=== PATIENT | male | born 1930 | race Caucasian/White ===

== ENCOUNTER 2018-07-22 04:56 | Inpatient (IN) ==
[2018-07-15 12:48] LABS: Appearance,Urine CLEAR; Bilirubin,Urine NEG (NEG); Color,Urine YELLOW; Glucose,Urine (UA) NEGATIVE (NEG); Leukocyte Esterase,Urine NEG /uL (NEG); Protein,Urine NEG (NEG); Specific Gravity,Urine 1.015 (1.000-1.035); Urine Blood NEG mg/dL (<0.03); Urobilinogen,Urine NEG (NEG)
[2018-07-15 13:07] LABS: Basophils # (Auto) 0 K/mcL (0.0-0.3); Basophils % (Auto) 0.3 % (0.0-2.0); Eosinophils # (Auto) 0.1 K/mcL (0.0-0.7); Granulocytes % (Auto) 73.8 % (38.0-78.0); Lymphocytes # (Auto) 0.9 K/mcL (1.5-4.8); Lymphocytes % (Auto) 14.5 % (15.5-49.0); Mean Cell Volume 91.6 fL (80.0-100.0); Mean Corpuscular HGB Conc 32.6 g/dL (31.0-36.0); Monocytes # (Auto) 0.6 K/mcL (0.1-0.9); Monocytes % (Auto) 9.4 % (1.0-12.0); Platelet Count 327 K/mcL (140-440); RBC 3.56 M/mcL (4.50-5.90); Red Cell Distribution Width 16.9 % (11.5-14.5)
[2018-07-15 13:36] LABS: Blood Urea Nitrogen 35 mg/dl (8-23)
[2018-07-15 15:03] LABS: Estimated Average Glucose(eAG) 140 mg/dL; Hemoglobin A1C 6.5 % HGB (4.0-6.0)
[2018-07-22] MEDS ORDERED: PREGABALIN 75 MG CAPSULE PO SCH (07:00)
[2018-07-22] MEDS ORDERED: CELECOXIB 200 MG CAPSULE PO SCH (07:00)
[2018-07-22] MEDS ORDERED: oxyCODONE 10 MG TAB.ER.12H PO SCH (07:00)
[2018-07-22] MEDS ORDERED: IPRATROPIUM/ALBUTEROL 3 ML AMPUL.NEB NEB ONE (07:09)
[2018-07-22] MEDS: ceFAZolin 1 GM VIAL IV SCH ×4 (07:22→22:32)
[2018-07-22] MEDS ORDERED: SUCCINYLCHOLINE 20 MG/ML ML IV ONE (08:00)
[2018-07-22] MEDS ORDERED: MIDAZOLAM 5 MG/5 ML VIAL IV ONE (08:00)
[2018-07-22] MEDS ORDERED: PHENYLEPHRINE 10 MG/ML VIAL IV ONE (08:00)
[2018-07-22] MEDS ORDERED: DEXAMETHASONE 10 MG/ML VIAL IV ONE (08:00)
[2018-07-22] MEDS ORDERED: LIDOCAINE HCL/PF 100 MG/5 ML SYRINGE IV ONE (08:00)
[2018-07-22] MEDS ORDERED: fentaNYL 100 MCG/2 ML VIAL IV ONE (08:00)
[2018-07-22] MEDS ORDERED: PROPOFOL 200 MG/20 ML VIAL IV ONE (08:00)
[2018-07-22] MEDS ORDERED: ONDANSETRON 4 MG/2 ML VIAL IV ONE (08:00)
[2018-07-22] MEDS ORDERED: HEPARIN 20,000 UNIT/ML VIAL IR ONE (08:30)
[2018-07-22] MEDS ORDERED: fentaNYL 100 MCG/2 ML VIAL IV PRN (08:41)
[2018-07-22] MEDS ORDERED: FLUMAZENIL 0.1 MG/ML ML IV PRN (08:41)
[2018-07-22] MEDS ORDERED: IPRATROPIUM/ALBUTEROL 3 ML AMPUL.NEB NEB PRN (08:41)
[2018-07-22] MEDS ORDERED: NALOXONE HCL 0.4 MG/ML VIAL IV PRN (08:41)
[2018-07-22] MEDS ORDERED: HYDROmorphone 2 MG/ML VIAL IV PRN (08:41)
[2018-07-22] MEDS ORDERED: METHOCARBAMOL 1,000 MG/10 ML VIAL IV PRN (08:41)
[2018-07-22] MEDS ORDERED: MEPERIDINE 25 MG/ML SYRINGE IV PRN (08:41)
[2018-07-22] MEDS ORDERED: ACETAMINOPHEN 1,000 MG/100 ML BOTTLE IV ONE (08:41)
[2018-07-22] MEDS ORDERED: ATROPINE SULFATE 0.4 MG/ML VIAL IV PRN (08:41)
[2018-07-22] MEDS ORDERED: ONDANSETRON 4 MG/2 ML VIAL IV PRN ×2 (08:41→09:34)
[2018-07-22] MEDS ORDERED: ePHEDrine 50 MG/ML AMPUL IV PRN (08:41)
[2018-07-22] MEDS ORDERED: diphenhydrAMINE 50 MG/ML VIAL IV PRN (08:41)
[2018-07-22] MEDS ORDERED: LACTATED RINGERS 1,000 ML IV SCH (08:45)
--- NOTE | 2018-07-22 09:33 | Brief Operative Note ---
Date of procedure: 07/22/18 Pre-op diagnosis: R hip severe OA Post-op diagnosis: same Procedure: Right anterior total hip arthroplasty Grafts/Implants: Yes (Depuy Actis 9 std stem, +5 36 delta head, 56 cup, neutral altrx liner) Anesthesia: spinal, GLMA Findings: severe arthritis Complications: none Surgeon: Humberto Patel Hoisting Laborer: Elfego Herrera Estimated blood loss (cc): 150 Specimens Removed/Pathology: none sent Condition: stable Disposition: PACU
[2018-07-22] MEDS ORDERED: KETOROLAC 15 MG/ML VIAL IV PRN (09:34)
[2018-07-22] MEDS ORDERED: POLYETHYLENE GLYCOL 3350 17 GM PACKET PO PRN (09:34)
[2018-07-22] MEDS ORDERED: TRANEXAMIC ACID 1,000 MG/10 ML VIAL IV SCH (09:34)
[2018-07-22] MEDS ORDERED: BENZOCAINE/MENTHOL 1 LOZENGE PO PRN (09:34)
[2018-07-22] MEDS ORDERED: FLEETS ADULT ENEMA PR PRN (09:34)
[2018-07-22] MEDS ORDERED: BISACODYL 10 MG SUPP.RECT PR PRN (09:34)
[2018-07-22] MEDS ORDERED: MAGNESIUM HYDROXIDE 30 ML ORAL.SUSP PO PRN (09:34)
[2018-07-22] MEDS ORDERED: valACYclovir 1,000 MG TABLET PO PRN (09:37)
[2018-07-22] MEDS ORDERED: METOLAZONE 2.5 MG TABLET PO PRN (09:37)
[2018-07-22] MEDS ORDERED: ALBUTEROL SULFATE 1 PUFF INHALER INH PRN (09:37)
--- NOTE | 2018-07-22 10:32 | XRay Report ---
CLINICAL INFORMATION: Right hip replacement TECHNIQUE: 0.6 minutes fluoroscopy utilized by Dr. Patel. Multiple spot films obtained. Right total hip arthroplasty performed IMPRESSION: Fluoroscopy and intraoperative spot films. Right total hip arthroplasty Interpreted and Authenticated by: Josiah Celestin 07/22/18
--- NOTE | 2018-07-22 10:33 | XRay Report ---
CLINICAL INFORMATION: Right total hip arthroplasty TECHNIQUE: AP pelvis, AP and lateral right hip COMPARISON: None. FINDINGS: Status post right total hip arthroplasty. Femoral head and acetabular complements. Anatomic. Pelvis is negative. No fracture. No lytic lesion. Left hip is negative. IMPRESSION: Right total hip arthroplasty Interpreted and Authenticated by: Josiah Celestin 07/22/18
--- NOTE | 2018-07-22 11:19 | Operative Note ---
DATE OF OPERATION: 07/22/2018 PREOPERATIVE DIAGNOSIS: Right hip severe osteoarthritis. POSTOPERATIVE DIAGNOSIS: Right hip severe osteoarthritis. PROCEDURE PERFORMED: Right anterior total hip arthroplasty using a DePuy Actis size 9 standard offset femoral stem; a +5, 36 mm delta ceramic head ball; a 56 [place] cup with a neutral AltrX liner. SURGEON: Humberto Patel M.D. FURRIER DESIGNER: Serafin Herrera PA-C. ANESTHESIA: Spinal plus general. DRAINS: None. SPECIMENS: Femoral head which was discarded. BLOOD LOSS: 150 mL. COMPLICATIONS: None. POSTOPERATIVE CONDITION: Stable. INDICATIONS FOR SURGERY: This is an 88-year-old male who has had longstanding severe right hip pain. Radiographs showed complete obliteration of the joint space with severe arthritis. FINDINGS AT SURGERY: As above. Post implantation showed components in good position with satisfactory leg length and offset episcopalian. PROCEDURE IN DETAIL: The patient had been seen preoperatively and informed consent had been obtained after discussion of risks and benefits of surgery. Risks including, but not limited to, bleeding, possibly requiring transfusion; infection, possibly requiring implant removal and prolonged IV antibiotics; injury to nerves, blood vessels, other surrounding structures; anesthetic risks; incomplete or no resolution of symptoms; leg length discrepancy; dislocation; fracture; DVT and pulmonary embolus risks; and the possibility of needing further revision surgery. He understood and wished to proceed. Correct operative site was marked and then patient was taken to the operating room. General anesthesia induced after spinal anesthesia was given in preop holding. He was carefully positioned on the fracture table, and the right hip and groin were then carefully prepped and draped in normal sterile fashion, and a time-out was performed verifying patient name, operative site, and plan. Standard anterior approach incision was made, starting at the groin crease and extending distally with a scalpel through skin and subcutaneous tissue. Hemostasis obtained with Bovie cautery. Blunt dissection was taken down onto tensor fascia and this was undermined circumferentially. Irrisept was irrigated and then a ring retractor was placed. Tensor fascia was incised in line with the muscle fibers. Careful blunt dissection was taken medial to the muscle belly and blunt cobra retractors placed on the superior and inferior neck. Circumflex vessels were coagulated and cut and vastus fascia was split distally. Anterior capsulectomy was performed and capsule releases taken down to the lesser and out towards the greater trochanter. We then placed a corkscrew in the femoral head. Osteotome was used under fluoro to identify our approximate neck cut and then we used the oscillating tip saw to make our neck cut. Femoral head was removed and the acetabulum was exposed. Labrum was excised circumferentially as well as soft tissue removed from the floor. We reamed down to the tear drop and then increased reamer size and angle until we got rim ream with a 55 reamer. We opened a 56 three-hole cup. Acetabulum was irrigated with Irrisept, after a minute pulse lavaged with saline. An [id number] was used to impact the cup. We were having difficulty getting press fit. We removed the cup and removed some more soft tissue. We then re-impacted and did get some press fit, but felt he would benefit from extra fixation with a screw. We drilled in the posterior superior quadrant and placed a 35 mm screw. We then placed a center hole cover, and a neutral Altrx liner was carefully aligned and impacted. Tabs were verified to be fully flush. We removed some anterior osteophyte with a curved osteotome. Traction was removed from the leg. It was externally rotated. Capsule was released around the medial neck and posteriorly and then the leg was extended and adducted. Capsule was released out to the greater trochanter, and then after we had adequate exposure of the proximal femur a box osteotome was used to gain canal entry. An awl was used to identify trajectory. A rongeur and rasp were used to lateralize. We broached up manually using offset broach handles up initially to a size 6. We calcar planed down some and then trialed a standard offset neck with a +1.5 head ball. Hip was reduced very easily. We brought in fluoroscopy. We x-rayed the nonoperative and operative hip, and we were clearly undersized on our stem and short, so we went ahead and re-dislocated. I increased broaches, broaching up to a 9 which sat us above our neck cut to try and get our leg lengths equal. We went ahead and opened a 9 Actis stem. The femoral trial was removed and Irrisept was irrigated down the femoral canal. After a minute we pulse lavaged copiously with saline and then the femoral stem was impacted. It did seat up about 4 to 5 mm off the neck cut. We went ahead and trialed the 1.5 head ball. The hip was reduced. It appeared we were going to be slightly undersized, so we went ahead and opened a +5 head ball. We re-exposed the proximal femur. The stem was cleaned and dried carefully and then a +5 head ball was briskly impacted. The hip was reduced without excessive tension. Final fluoro images were taken and printed. Overlay revealed nearly identical leg lengths. We went ahead and irrigated with Irrisept, after a minute pulse lavaged with saline, and then tensor fascia was closed with #1 Vicryl running stitch, one going proximal and one running distal. Ring retractor was removed. Irrisept was irrigated again and after a minute pulse lavaged with saline. Fat was tacked to fascia with Vicryl and then 2-0 Monocryl for subcutaneous and gabe for skin. Xeroform and sterile dressing were applied. The patient was then awakened, extubated, and transferred to recovery in stable condition. BJB:sue Job ID: [id number] Doc ID: [id number] Humberto Patel MD
[2018-07-22] MEDS ORDERED: valACYclovir 500 MG TABLET PO PRN (12:30)
[2018-07-22] MEDS: IPRATROPIUM/ALBUTEROL 3 ML AMPUL.NEB NEB SCH ×3 (12:50→19:47)
[2018-07-22] MEDS: 0.9 % SODIUM CHLORIDE 10 ML SYRINGE IV SCH ×2 (15:14→21:04)
[2018-07-22] MEDS: FUROSEMIDE 20 MG TABLET PO SCH (15:14)
[2018-07-22] MEDS: 0.9 % SODIUM CHLORIDE 1,000 ML IV SCH ×2 (15:14→20:54)
[2018-07-22] MEDS: oxyCODONE/APAP 5/325MG TABLET PO PRN (19:38)
[2018-07-22] MEDS: BUDESONIDE 0.5 MG/2 ML AMPUL.NEB NEB SCH (19:46)
[2018-07-22] MEDS: WARFARIN 2.5 MG TABLET PO SCH (20:50)
[2018-07-22] MEDS: DOCUSATE SODIUM 100 MG CAPSULE PO SCH (20:51)
[2018-07-22] MEDS: PSEUDOEPHEDRINE 30 MG TABLET PO SCH (20:51)
[2018-07-22] MEDS: SENNOSIDES 1 TABLET PO SCH (20:51)
[2018-07-22] MEDS: BISOPROLOL 5 MG TABLET PO SCH (20:52)
[2018-07-22] MEDS: ALLOPURINOL 100 MG TABLET PO SCH (20:52)
[2018-07-22] MEDS: ATORVASTATIN 20 MG TABLET PO SCH (20:52)
[2018-07-22] MEDS ORDERED: ASPIRIN 325 MG ENTERIC COATED TABLET PO SCH (21:00)
[2018-07-23] MEDS: 0.9 % SODIUM CHLORIDE 1,000 ML IV SCH ×3 (00:22→16:25)
[2018-07-23] MEDS: IPRATROPIUM/ALBUTEROL 3 ML AMPUL.NEB NEB SCH ×4 (04:19→19:50)
[2018-07-23] MEDS: oxyCODONE/APAP 5/325MG TABLET PO PRN ×2 (05:49→21:25)
[2018-07-23] MEDS: 0.9 % SODIUM CHLORIDE 10 ML SYRINGE IV SCH ×3 (05:49→21:34)
[2018-07-23] MEDS: BUDESONIDE 0.5 MG/2 ML AMPUL.NEB NEB SCH (07:22)
--- NOTE | 2018-07-23 08:05 | Orthopedic Progress Note ---
Orthopedics - Auxillary Note - Subjective Patient Information: Note initiated : 07/23/18 at 8:04 am Service Date, if different from initiated Date: [] Patient: Yoav Álvarez 88 y/o M admitted on 07/22/18 for Right Total Hip Arthroplasty Anterior. Chief Complaint: mild to moderate pain. bandages c/d/i nvi-distal Vital Signs Temp Pulse Pulse Resp BP BP Pulse Ox 07/23/18 07:36 80 18 98 07/23/18 07:35 80 18 07/23/18 04:10 81 15 07/23/18 04:06 97.1 F 85 18 139/66 93 07/22/18 23:30 97.1 F 83 18 113/60 93 07/22/18 20:19 98.5 F 85 18 106/69 93 07/22/18 19:43 81 18 07/22/18 17:00 78 07/22/18 13:34 81 07/22/18 12:36 81 127/68 94 07/22/18 12:11 78 142/95 91 07/22/18 11:40 73 123/51 98 07/22/18 11:25 83 144/49 98 07/22/18 11:09 85 159/81 92 07/22/18 11:00 79 90 07/22/18 10:54 75 135/70 98 07/22/18 10:39 84 135/72 88 L 07/22/18 10:31 97.3 F 86 26 H 147/87 94 07/22/18 10:20 97.0 F 92 H 16 148/70 100 07/22/18 10:05 98.5 F 88 20 159/135 100 07/22/18 10:00 86 23 H 151/102 100 07/22/18 09:55 85 19 208/152 100 07/22/18 09:54 98.9 F 74 20 168/90 100 Intake and Output 07/22/18 07/23/18 07/23/18 21:59 05:59 13:59 Intake Total 1960 Output Total 101 451 Balance -101 1509 Intake: IV 1460 Sodium Chloride 0.9% 1,000 ml @ 1460 100 mls/hr IV .Q10H KAREEM Rx#: [id number] Oral 500 Output: Void Amount 100 450 # of times incontinent of urine 1 1 Other: Urine Appearance Clear Urine Color Straw Bright Yellow Urine Odor Normal Normal # Voids 1 Weight 224 lb 8 oz Laboratory Results - last 24 hr 07/23/18 07/23/18 04:05 04:05 Hgb 9.2 L Hct 28.4 L PT 14.2 INR 1.1 s/p R EMELY-stable mobilize with PT. Possible SNF placement versus home depending on how pt is doing.
[2018-07-23] MEDS: DOCUSATE SODIUM 100 MG CAPSULE PO SCH ×2 (08:59→21:24)
[2018-07-23] MEDS: POTASSIUM CHLORIDE 10 MEQ TABLET PO SCH (08:59)
[2018-07-23] MEDS: FUROSEMIDE 20 MG TABLET PO SCH ×2 (08:59→16:20)
[2018-07-23] MEDS: PSEUDOEPHEDRINE 30 MG TABLET PO SCH ×2 (08:59→21:29)
[2018-07-23] MEDS: CETIRIZINE 10 MG TABLET PO SCH (08:59)
[2018-07-23] MEDS: FLUTICASONE PROPIONATE SPRAY.NAS NS SCH (09:00)
[2018-07-23] MEDS: ALLOPURINOL 100 MG TABLET PO SCH (21:19)
[2018-07-23] MEDS: ATORVASTATIN 20 MG TABLET PO SCH (21:22)
[2018-07-23] MEDS: SENNOSIDES 1 TABLET PO SCH (21:23)
[2018-07-23] MEDS: BISOPROLOL 5 MG TABLET PO SCH (21:25)
[2018-07-23] MEDS: WARFARIN 2.5 MG TABLET PO SCH (21:28)
[2018-07-24] MEDS: BUDESONIDE 0.5 MG/2 ML AMPUL.NEB NEB SCH ×2 (00:20→07:40)
[2018-07-24] MEDS: IPRATROPIUM/ALBUTEROL 3 ML AMPUL.NEB NEB SCH ×2 (01:45→07:39)
[2018-07-24] MEDS: 0.9 % SODIUM CHLORIDE 1,000 ML IV SCH (02:05)
[2018-07-24] MEDS: 0.9 % SODIUM CHLORIDE 10 ML SYRINGE IV SCH ×2 (05:51→14:00)
--- NOTE | 2018-07-24 07:56 | Discharge Summary ---
Providers - Providers Patient information: Note initiated : 07/24/18 at 7:54 am Service Date, if different from initiated Date: [] Patient: Yoav Álvarez 88 y/o M admitted on 07/22/18 for Right Total Hip Arthroplasty Anterior. Chief Complaint: [] Discharge date: 07/24/18 Hospitalization Hospital course: Pt was admitted for a R EMELY. Pt underwent the procedure on the day of admission. Pt spent 2 nights on the floor for IV pain meds, IV abx and PT. Pt was discharged to home with home health for PT. Pt will f/u in 2 weeks at [facility]. Pt will cont Coumadin for DVT prophylaxis. Discharge diagnosis: R hip OA Exam - Exam Clean and dry: Yes Weight bearing status: as tolerated Ortho Discharge - EMELY - Patient Instructions Diet: Regular Diet Activity: activity as tolerated Total Hip Protocol: Follow activity instructions as provided by Physical Therapy. Dressing Care: May shower in 2 days - Follow Up Plan Disposition: Home, Self-Care Prognosis: Good Rehab Potential: Good Overall status at discharge: patient is back to baseline - Orders For Discharge Prescriptions: HYDROcodone/APAP 10/325MG [[place] 10-325Mg] 1 - 2 tab PO Q6H PRN #75 tab PRN Reason: Pain Pending Studies Resuscitation Status Do Not Resuscitate Diet Consistent Carbohydrate Diet Start FriJul 22 0936 Albuterol/Ipratropium (Duoneb) 3 ml NEB Q6H [facility] Last Admin: 07/24/18 07:39 Dose: 3 ml Documented by: Admin: 07/24/18 01:45 Dose: 3 ml Documented by: Admin: 07/23/18 19:50 Dose: 3 ml Documented by: Admin: 07/23/18 13:45 Dose: 3 ml Documented by: [email or web address] Admin: 07/23/18 07:20 Dose: 3 ml Documented by: [email or web address] Allopurinol (Zyloprim) 150 mg PO [facility] Last Admin: 07/23/18 21:19 Dose: 150 mg Documented by: JOSE D Cosigned by: MARY Admin: 07/22/18 20:52 Dose: 150 mg Documented by: ODELL Atorvastatin Calcium (Lipitor) 40 mg PO [facility] Last Admin: 07/23/18 21:22 Dose: 40 mg Documented by: JOSE D Cosigned by: MARY Admin: 07/22/18 20:52 Dose: 40 mg Documented by: ODELL Bisoprolol Fumarate (Zebeta) 5 mg PO HS [facility] Last Admin: 07/23/18 21:25 Dose: 5 mg Documented by: JOSE D Cosigned by: MARY Admin: 07/22/18 20:52 Dose: 5 mg Documented by: ODELL Budesonide (Pulmicort) 0.5 mg NEB BID [facility] Last Admin: 07/24/18 07:40 Dose: 0.5 mg Documented by: Admin: 07/24/18 00:20 Dose: Not Given Documented by: Admin: 07/23/18 07:22 Dose: 0.5 mg Documented by: [email or web address] Admin: 07/22/18 19:46 Dose: 0.5 mg Documented by: ASHISH Cetirizine HCl (Zyrtec) 10 mg PO DAILY [facility] Last Admin: 07/23/18 08:59 Dose: 10 mg Documented by: KEVIN Docusate Sodium (Colace) 100 mg PO BID [facility] Last Admin: 07/23/18 21:24 Dose: 100 mg Documented by: JOSE D Cosigned by: MARY Admin: 07/23/18 08:59 Dose: 100 mg Documented by: Admin: 07/22/18 20:51 Dose: 100 mg Documented by: ODELL Fluticasone Propionate (Flonase) 1 spray NS DAILY [facility] Last Admin: 07/23/18 09:00 Dose: 1 spray Documented by: KEVIN Furosemide (Lasix) 20 mg PO BIDD [facility] Last Admin: 07/23/18 16:20 Dose: 20 mg Documented by: Admin: 07/23/18 08:59 Dose: 20 mg Documented by: Admin: 07/22/18 15:14 Dose: 20 mg Documented by: KEVIN Oxycodone/Acetaminophen (Percocet 5-325 Mg) 0 tab PO Q4HP PRN PRN Reason: PAIN LEVEL 3-6 Last Admin: 07/23/18 21:25 Dose: 1 tab Documented by: JOSE D Cosigned by: MARY Admin: 07/23/18 05:49 Dose: 1 tab Documented by: Admin: 07/22/18 19:38 Dose: 1 tab Documented by: ODELL Potassium Chloride (Kdur) 10 meq PO QAMCC [facility] Last Admin: 07/23/18 08:59 Dose: 10 meq Documented by: KEVIN Pseudoephedrine HCl (Sudafed) 15 mg PO BID [facility] Last Admin: 07/23/18 21:29 Dose: 15 mg Documented by: JOSE D Cosigned by: MARY Admin: 07/23/18 08:59 Dose: 15 mg Documented by: Admin: 07/22/18 20:51 Dose: 15 mg Documented by: ODELL Senna (Senokot) 2 tab PO HS [facility] Last Admin: 07/23/18 21:23 Dose: 2 tab Documented by: JOSE D Cosigned by: MARY Admin: 07/22/18 20:51 Dose: 2 tab Documented by: ODELL Sodium Chloride (Saline Flush) 10 ml IV Q8 [facility] Admin: 07/24/18 05:51 Dose: Not Given Documented by: Admin: 07/23/18 21:34 Dose: Not Given Documented by: JOSE D Admin: 07/23/18 16:21 Dose: 10 ml Documented by: Admin: 07/23/18 05:49 Dose: 10 ml Documented by: Admin: 07/22/18 21:04 Dose: Not Given Documented by: Admin: 07/22/18 15:14 Dose: Not Given Documented by: KEVIN Warfarin Sodium (Coumadin) 2.5 mg PO SUTUWETHFRSA@2100 [facility] Last Admin: 07/23/18 21:28 Dose: 2.5 mg Documented by: JOSE D Cosigned by: MARY Admin: 07/22/18 20:50 Dose: 2.5 mg Documented by: ODELL Shift Summary 07/24/18 04:39 Shift Summary by Nikky Linton Patient slept well this shift. Alert and oriented x4. Uses CPAP at night. Up with FWW and SBA. Voids using the urinal, dribbles which is normal for patient. Has wallace-pad. Medicated with Percocet 1 tab x1 with good effect. Right hip dressing CDI. No IV access at this time. No IV medications. For discharge on Friday to SNF. VSS. Initialized on 07/24/18 04:39 - END OF NOTE
[2018-07-24] MEDS: FLUTICASONE PROPIONATE SPRAY.NAS NS SCH (08:12)
[2018-07-24] MEDS: POTASSIUM CHLORIDE 10 MEQ TABLET PO SCH (08:13)
[2018-07-24] MEDS: oxyCODONE/APAP 5/325MG TABLET PO PRN ×2 (08:13→09:50)
[2018-07-24] MEDS: CETIRIZINE 10 MG TABLET PO SCH (08:13)
[2018-07-24] MEDS: PSEUDOEPHEDRINE 30 MG TABLET PO SCH (08:13)
[2018-07-24] MEDS: DOCUSATE SODIUM 100 MG CAPSULE PO SCH (08:13)
[2018-07-24] MEDS: FUROSEMIDE 20 MG TABLET PO SCH (08:13)
[2018-07-27] MEDS ORDERED: WARFARIN 5 MG TABLET PO SCH (21:00)
== END 2018-07-24 14:15 | disposition home or self-care (01) | DRG 470 ==
LOC: MEDSUR 04:56
PROVIDERS: ADMIT Orthopaedic Surgery; ATTEND Orthopaedic Surgery

== ENCOUNTER 2021-05-15 03:46 | Inpatient (IN) ==
[2021-05-15] MEDS ORDERED: IPRATROPIUM/ALBUTEROL 3 ML AMPUL.NEB NEB ONE ×2 (03:59→04:02)
--- NOTE | 2021-05-15 04:20 | XRay Report ---
CLINICAL INFORMATION: Hypoxia COMPARISON: 10/03/2016 TECHNIQUE: Portable FINDINGS: The heart is mildly enlarged increased from prior x-ray. Mediastinum is unremarkable. The pulmonary vessels are equivocally distended. A moderate patchy infiltrate has developed in the right mid and lower lung. There is minimal interstitial edema in both lungs. No effusions. IMPRESSION: Moderate patchy right basilar infiltrate. Probable superimposed mild CHF. Please correlate with supportive history and physical exam findings and possibly BNP Interpreted and Authenticated by: Josiah Wright 05/15/21
[2021-05-15] MEDS ORDERED: FUROSEMIDE 40 MG/4 ML VIAL IV ONE (04:25)
[2021-05-15] MEDS ORDERED: AZITHROMYCIN 500 MG in DEXTROSE 5% IN WATER 250 ML IV ONE (04:27)
[2021-05-15] MEDS ORDERED: cefTRIAXone 1 GM VIAL IV ONE (04:27)
[2021-05-15 04:33] LABS: POC INR 4.1 (0.8-1.2); POC Pro Time 45.5 sec (11.9-14.5)
[2021-05-15 05:10] LABS: Basophils # (Auto) 0.04 K/mcL (0.00-0.30); Basophils % (Auto) 0.3 % (0.0-2.0); Eosinophils # (Auto) 0.12 K/mcL (0.00-0.70); Eosinophils % (Auto) 0.9 % (0.0-7.0); Hematocrit 30.5 % (40.1-51.0); Lymphocytes # (Auto) 1.08 K/mcL (1.50-4.80); Lymphocytes % (Auto) 8.2 % (15.5-49.0); Mean Cell Volume 94.7 fL (80.0-100.0); Mean Corpuscular HGB Conc 32.8 g/dL (31.0-36.0); Mean Platelet Volume 9.9 fL (7.4-10.4); Monocytes # (Auto) 1.19 K/mcL (0.10-0.90); Neutrophils % (Auto) 81.6 % (38.0-78.0); Platelet Count 444 K/mcL (140-440); RBC 3.22 M/mcL (4.63-6.08); Red Cell Distribution Width 15.9 % (11.5-14.5); WBC 13.2 K/mcL (4.5-11.0)
[2021-05-15 05:32] LABS: Blood Urea Nitrogen 31 mg/dL (8-23); Calcium 9.5 mg/dL (8.6-10.4); Carbon Dioxide 28 mmol/L (22-30); Chloride 93 mmol/L (96-108); Glomerular Filtration Rate 29; Glucose 140 mg/dL (70-105)
--- NOTE | 2021-05-15 06:22 | Emergency Department Note ---
SOB HPI General Chief Complaint: Shortness of Breath/Dyspnea Stated Complaint: SHORTNESS OF BREATH Time Seen by Provider: 05/15/21 03:58 Source: patient Mode of arrival: ambulatory Limitations: no limitations History of Present Illness HPI Narrative: This is a very pleasant 89-year-old male with a history of CKD, CHF, COPD, hypertension presented to the ED with acutely worsening dyspnea. Has been going on for 2 to 3 days also has a slight runny nose nasal congestion and acute on chronic cough. No chest pain no abdominal pain or GI symptoms. Does have chronic lower extremity edema unsure if it is worse than normal. Family member reports it seems more edematous. Has been taking his medications. Patient otherwise lives at home, family members help care for him. No other acute complaints. Patient is DNR comfort care Related Data Home Medications Medication Instructions Recorded Confirmed valacyclovir 500 mg tablet 500 mg PO BIDP PRN 09/20/16 04/19/21 potassium chloride 10 mEq 10 meq PO QDAY tab 10/17/16 05/15/21 tablet,extended release warfarin 5 mg tablet See Rx Instructions .ROUTE .COMPLEX 10/17/16 05/15/21 budesonide 0.5 mg/2 mL suspension 0.5 mg INHALATION BID ml 11/20/16 04/19/21 for nebulization fluticasone propionate 50 50 mcg INTRANASAL DAILY 12/17/16 04/19/21 mcg/actuation nasal spray,suspension atorvastatin 40 mg tablet 40 mg PO HS 06/13/17 05/15/21 cetirizine 10 mg capsule 10 mg PO DAILY cap 03/04/18 05/15/21 ipratropium 0.5 mg-albuterol 3 mg 3 ml INHALATION Q6H ml 03/04/18 04/19/21 (2.5 mg base)/3 mL nebulization soln warfarin 2.5 mg tablet 2.5 mg PO WILTONUWETHFRSA@2100 07/15/18 04/19/21 CPAP #1 ea 10/12/19 04/19/21 hydrocortisone 1 % topical cream 1 applic TOPICAL BID PRN 12/21/19 04/19/21 (Anti-Itch (hydrocortisone)) metolazone 2.5 mg tablet 2.5 mg PO PRN PRN 12/21/19 04/19/21 diltiazem HCl 180 mg 180 mg PO QDAY #30 cap 12/19/20 05/15/21 capsule,extended release 24 hr furosemide 20 mg tablet 40 mg PO BID tab 12/19/20 05/15/21 omeprazole 20 mg capsule,delayed 20 mg PO QDAY 05/15/21 05/15/21 release Previous Rx's Medication Instructions Recorded albuterol sulfate 90 mcg/actuation 2 puff INHALATION QIDP PRN #18 g 10/12/19 aerosol inhaler (ProAir HFA) allopurinol 300 mg tablet 150 mg PO HS #45 tab 08/28/20 Allergies Allergy/AdvReac Type Severity Reaction Status Date / Time Imipramine AdvReac Mild Other Verified 04/19/21 14:41 Review of Systems ROS ROS Narrative: Narrative: At least 10 systems reviewed and otherwise acutely negative except as in the HPI PFSH Narrative Patient History Narrative: Narrative: Medical/Surgical/Family History All Active Problems Acute exacerbation of CHF (congestive heart failure) (Acute) Acute pneumonia (Acute) 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) Chronic kidney disease (CKD) stage G3b/A1, moderately decreased glomerular filtration rate (GFR) between 30-44 mL/min/1.73 square meter and albuminuria creatinine ratio less than 30 mg/g (Chronic) BEATA treated with BiPAP (Acute) 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 CKD (chronic kidney disease) stage III (Chronic) Localized edema due to fluid overload (Chronic) Stress incontinence, male (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) Spasm of muscle of lower back (Chronic) Chronic obstructive pulmonary disease without exacerbation (Chronic) Atrial fibrillation (Chronic) Sleep apnea (Chronic) Right hip pain (Chronic) History of lumbar laminectomy (Chronic ~2006) Other intervertebral disc degeneration, thoracolumbar region (Chronic) Normocytic normochromic anemia (Chronic) Prostate cancer (Chronic) Pure hypercholesterolemia, unspecified (Chronic) 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) Renal hypertension (Chronic) GERD (gastroesophageal reflux disease) (Chronic) Left-sided thoracic back pain (Chronic) Spinal stenosis of lumbar region (Chronic) Wheezing (Chronic) Acute diastolic (congestive) heart failure (Chronic) History of Coumadin therapy (Chronic) Acute exacerbation of chronic obstructive airways disease (Acute) Atrial fibrillation with rapid ventricular response (Acute) Acute respiratory failure with hypoxia (Acute) Congestive heart failure (Chronic) Asthma with COPD (Chronic) Medical History Acute diastolic (congestive) heart failure Acute exacerbation of chronic obstructive airways disease Acute respiratory failure with hypoxia Anemia Asthma with COPD Atrial fibrillation Atrial fibrillation with rapid ventricular response Balanoposthitis Benign hypertension with CKD (chronic kidney disease) stage III Bladder neck obstruction Chronic obstructive pulmonary disease without exacerbation Congestive heart failure Coronary artery disease GERD (gastroesophageal reflux disease) History of blood transfusion History of Coumadin therapy IgA monoclonal gammopathy of uncertain significance Left-sided thoracic back pain Localized edema due to fluid overload Normocytic normochromic anemia BEATA treated with BiPAP Other intervertebral disc degeneration, thoracolumbar region Prostate cancer Pure hypercholesterolemia, unspecified Renal hypertension Right hip pain Sleep apnea Sleep apnea with use of continuous positive airway pressure (CPAP) Spasm of muscle of lower back Spinal stenosis of lumbar region Stress incontinence, male Wheezing Surgical History History of cataract surgery (~2006) History of left knee surgery (~1988) History of lumbar laminectomy (~2006) History of prostate surgery (~2008) scar tissue removal from prostate History of prostatectomy (09/05/08) History of tonsillectomy Family History Father , strokes No problems noted. Other No pertinent family history Social History Smoking Status: Former smoker Alcohol Intake Frequency: does not drink Substance Use: does not use Exam Narrative Narrative: Narrative: Constitutional: normally developed, is mildly dyspneic and hypoxic speaking in 2-3 word sentences Head: Normocephalic, atraumatic, Eyes: No Icterus, ENT: Moist mucus membranes, Neck: Supple, Cardiac: Tachycardic heart sounds, palpable radial pulses, 2+ lower extremity edema Pulmonary: Tachypneic hypoxic on room air in the 80s, improved on nasal cannula, dyspneic with 2-3 word sentences, mostly diminished at the bases with sporadic crackle, no wheeze Gastrointestinal: Abdomen soft, non-distended, non-tender, grossly normal a ppearing urine in Sr bag Musculoskeletal: No gross deformities, well perfused Skin: warm, dry Neuro: Alert and orientedx2. General Limitations: no limitations Course Vital Signs Vital signs: Vital Signs Temperature 36.6 C 05/15/21 03:48 Pulse Rate 122 H 05/15/21 03:48 Respiratory Rate 24 H 05/15/21 03:48 Blood Pressure 131/98 05/15/21 03:48 Pulse Oximetry (%) 79 L 05/15/21 03:48 Temperature 36.6 C 05/15/21 03:48 Pulse Rate 79 05/15/21 05:39 Respiratory Rate 93 H 05/15/21 05:06 Blood Pressure 124/107 05/15/21 05:31 Pulse Oximetry (%) 94 05/15/21 05:39 MDM MDM Narrative Medical decision making narrative: Differential COPD, viral infection, pneumonia, ACS, CHF Was still a bit dyspneic on nasal cannula was given a DuoNeb which did help, did place him on BiPAP for work of breathing and comfort given his DNR comfort care status Diagnostics pending Twelve-lead EKG shows atrial fibrillation heart rate 96 some nonspecific and generalized T wave flattening, possible slight J-point depression V2 V3 no ST segment elevations or STEMI criteria. QTc within normal Covid flu negative CBC does show leukocytosis of 13, INR is elevated 4.1, is on Coumadin at baseline Electrolytes show his CKD creatinine 2.0 which is approximately his baseline BNP is elevated higher than previous studies, 3100 Troponin slightly elevated 0.06, given lack of chest pain and presentation I suspect this is more likely due to CKD, volume overload from CHF and hypoxia prior to arrival, we will simply trend and treat underlying causes Chest x-ray shows possible right-sided pneumonia and CHF, which both fit clinically. Is given a dose of IV Lasix and started on Rocephin azithromycin Plan discussed with family members and patient given his comfort care status the would really like to keep him admitted here locally, we do not have beds available in the hospital at this time. Patient is very comfortable and currently hemodynamically stable and improved simply on some low setting BiPAP. I have spoken with sugar house supervisor we will keep the patient in the ER until later in the day when we have anticipated bed open/availability for admission. Patient and family very agreeable to this plan will be signed out to next physician at shift change. Lab Data Result diagrams: 05/15/21 03:59 05/15/21 03:59 Labs: Lab Results 05/15/21 05/15/21 05/15/21 Range/Units 03:59 03:59 03:59 WBC 13.2 H (4.5-11.0) K/mcL RBC 3.22 L (4.63-6.08) M/mcL Hgb 10.0 L (13.7-17.5) g/dL Hct 30.5 L (40.1-51.0) % MCV 94.7 (80.0-100.0) fL MCH 31.1 (26.0-34.0) pg MCHC 32.8 (31.0-36.0) g/dL RDW 15.9 H (11.5-14.5) % Plt Count 444 H (140-440) K/mcL MPV 9.9 (7.4-10.4) fL Neut % (Auto) 81.6 H (38.0-78.0) % Lymph % (Auto) 8.2 L (15.5-49.0) % [place] % (Auto) 9.0 (1.0-12.0) % Eos % (Auto) 0.9 (0.0-7.0) % Baso % (Auto) 0.3 (0.0-2.0) % Lymph # (Auto) 1.08 L (1.50-4.80) K/mcL [place] # (Auto) 1.19 H (0.10-0.90) K/mcL Eos # (Auto) 0.12 (0.00-0.70) K/mcL Baso # (Auto) 0.04 (0.00-0.30) K/mcL Absolute Neutrophils 10.73 H (1.80-8.00) K/mcL POC PT (11.9-14.5) sec POC INR (0.8-1.2) Sodium 136 (133-145) mmol/L Potassium 3.6 (3.3-5.1) mmol/L Chloride 93 L (96-108) mmol/L Carbon Dioxide 28 (22-30) mmol/L Anion Gap 15.0 (8.0-16.0) BUN 31 H (8-23) mg/dL Creatinine 2.0 H (0.7-1.2) mg/dL POC Creatinine (0.6-1.2) mg/dL GFR Calculation 29 Glucose 140 H (70-105) mg/dL Calcium 9.5 (8.6-10.4) mg/dL Troponin T 0.06 H* (<0.03) ng/mL NT-Pro-B Natriuret Pep 3176.0 H (<450.0) pg/mL 05/15/21 05/15/21 Range/Units 03:59 04:09 WBC (4.5-11.0) K/mcL RBC (4.63-6.08) M/mcL Hgb (13.7-17.5) g/dL Hct (40.1-51.0) % MCV (80.0-100.0) fL MCH (26.0-34.0) pg MCHC (31.0-36.0) g/dL RDW (11.5-14.5) % Plt Count (140-440) K/mcL MPV (7.4-10.4) fL Neut % (Auto) (38.0-78.0) % Lymph % (Auto) (15.5-49.0) % [place] % (Auto) (1.0-12.0) % Eos % (Auto) (0.0-7.0) % Baso % (Auto) (0.0-2.0) % Lymph # (Auto) (1.50-4.80) K/mcL [place] # (Auto) (0.10-0.90) K/mcL Eos # (Auto) (0.00-0.70) K/mcL Baso # (Auto) (0.00-0.30) K/mcL Absolute Neutrophils (1.80-8.00) K/mcL POC PT 45.5 H (11.9-14.5) sec POC INR 4.1 H (0.8-1.2) Sodium (133-145) mmol/L Potassium (3.3-5.1) mmol/L Chloride (96-108) mmol/L Carbon Dioxide (22-30) mmol/L Anion Gap (8.0-16.0) BUN (8-23) mg/dL Creatinine (0.7-1.2) mg/dL POC Creatinine 2.1 H (0.6-1.2) mg/dL GFR Calculation Glucose (70-105) mg/dL Calcium (8.6-10.4) mg/dL Troponin T (<0.03) ng/mL NT-Pro-B Natriuret Pep (<450.0) pg/mL ED POC Tests ED POC Tests: ROSITA - Influenza A Negative ROSITA - Influenza B Negative ROSITA - SARS Antigen Negative Discharge Plan Patient/Caregiver Discharge Instructions Pt seen by TRACTOR TRAILER TRUCK DRIVER/PA only: No Clinical Impression: Acute exacerbation of CHF (congestive heart failure), Acute pneumonia Patient Disposition: Still a Patient Condition: Serious Follow up with: Carine Washington MD [Primary Care Provider] - Prescriptions: No Action allopurinol 300 mg tablet 150 mg PO HS Qty: 45 1RF budesonide 0.5 mg/2 mL suspension for nebulization 0.5 mg INHALATION BID 0RF ipratropium-albuterol 0.5 mg-3 mg(2.5 mg base)/3 mL solution for nebulization 3 ml INHALATION Q6H 0RF potassium chloride 10 mEq tablet extended release 10 meq PO QDAY 0RF furosemide 20 mg tablet 40 mg PO BID 0RF diltiazem HCl 180 mg capsule,extended release 24hr 180 mg PO QDAY Qty: 30 0RF hydrocortisone [Anti-Itch (HC)] 1 % cream 1 applic TOPICAL BID PRN0RF fluticasone propionate 50 mcg/actuation spray,suspension 50 mcg INTRANASAL DAILY 0RF cetirizine 10 mg capsule 10 mg PO DAILY 0RF (DME) CPAP Qty: 1 0RF Rx Instructions: As directed albuterol sulfate [ProAir HFA] 90 mcg/actuation HFA aerosol inhaler 2 puff INHALATION QIDP PRN (Reason: Shortness Of Breath) Qty: 18 3RF valacyclovir 500 MG tablet 500 mg PO BIDP PRN (Reason: SHINGLES) 0RF warfarin 5 MG tablet See Rx Instructions .ROUTE .COMPLEX 0RF Label Comments: LAST DOSE PRIOR TO SURGERY: 07/17. WILL HOLD UNTIL AFTER SURGERY BEGINNING ON 07/18. Rx Instructions: 5 mg orally one time daily except on friday take 1/2 tab. warfarin 2.5 MG tablet 2.5 mg PO SUTUWETHFRSA@2100 0RF metolazone 2.5 mg tablet 2.5 mg PO PRN PRN (Reason: lung congestion, fluid retenti) 0RF Label Comments: PT HAS NEVER TAKEN. omeprazole 20 mg Capsule,Delayed Release(Dr/Ec) 20 mg PO QDAY 0RF atorvastatin 40 mg tablet 40 mg PO HS 0RF
--- NOTE | 2021-05-15 08:35 | Emergency Department Note ---
HPI General Chief complaint: Shortness of Breath/Dyspnea Stated complaint: SHORTNESS OF BREATH Time Seen by Provider: 05/15/21 03:58 Source: patient Mode of arrival: ambulatory Limitations: no limitations History of Present Illness HPI Narrative: Narrative: Related Data Home Medications Medication Instructions Recorded Confirmed valacyclovir 500 mg tablet 500 mg PO BIDP PRN 09/20/16 05/15/21 potassium chloride 10 mEq 10 meq PO QDAY tab 10/17/16 05/15/21 tablet,extended release warfarin 5 mg tablet See Rx Instructions .ROUTE .COMPLEX 10/17/16 05/15/21 budesonide 0.5 mg/2 mL suspension 0.5 mg INHALATION BID ml 11/20/16 05/15/21 for nebulization fluticasone propionate 50 50 mcg INTRANASAL DAILY 12/17/16 05/15/21 mcg/actuation nasal spray,suspension atorvastatin 40 mg tablet 40 mg PO HS 06/13/17 05/15/21 cetirizine 10 mg capsule 10 mg PO DAILY cap 03/04/18 05/15/21 ipratropium 0.5 mg-albuterol 3 mg 3 ml INHALATION Q6H ml 03/04/18 05/15/21 (2.5 mg base)/3 mL nebulization soln warfarin 2.5 mg tablet 2.5 mg PO WILTONUWETHFRSA@2100 07/15/18 05/15/21 CPAP #1 ea 10/12/19 04/19/21 hydrocortisone 1 % topical cream 1 applic TOPICAL BID PRN 12/21/19 05/15/21 (Anti-Itch (hydrocortisone)) metolazone 2.5 mg tablet 2.5 mg PO PRN PRN 12/21/19 05/15/21 diltiazem HCl 180 mg 180 mg PO QDAY #30 cap 12/19/20 05/15/21 capsule,extended release 24 hr furosemide 20 mg tablet 40 mg PO BID tab 12/19/20 05/15/21 omeprazole 20 mg capsule,delayed 20 mg PO QDAY 05/15/21 05/15/21 release Previous Rx's Medication Instructions Recorded albuterol sulfate 90 mcg/actuation 2 puff INHALATION QIDP PRN #18 g 10/12/19 aerosol inhaler (ProAir HFA) allopurinol 300 mg tablet 150 mg PO HS #45 tab 08/28/20 Allergies Allergy/AdvReac Type Severity Reaction Status Date / Time Imipramine AdvReac Mild Other Verified 04/19/21 14:41 Review of Systems ROS ROS Narrative: Narrative: PFSH Narrative Patient History Narrative: Narrative: Medical/Surgical/Family History All Active Problems (Updated 05/15/21 @ 11:18 by Ishan Smith MD) Elevated troponin (Acute) Anemia, normocytic normochromic (Acute) Acute on chronic respiratory failure with hypoxia (Acute) Acute exacerbation of CHF (congestive heart failure) (Acute) Acute pneumonia (Acute) 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) Chronic kidney disease (CKD) stage G3b/A1, moderately decreased glomerular filtration rate (GFR) between 30-44 mL/min/1.73 square meter and albuminuria creatinine ratio less than 30 mg/g (Chronic) BEATA treated with BiPAP (Acute) 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 CKD (chronic kidney disease) stage III (Chronic) Localized edema due to fluid overload (Chronic) Stress incontinence, male (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) Spasm of muscle of lower back (Chronic) Chronic obstructive pulmonary disease without exacerbation (Chronic) Atrial fibrillation (Chronic) Sleep apnea (Chronic) Right hip pain (Chronic) History of lumbar laminectomy (Chronic ~2006) Other intervertebral disc degeneration, thoracolumbar region (Chronic) Normocytic normochromic anemia (Chronic) Prostate cancer (Chronic) Pure hypercholesterolemia, unspecified (Chronic) 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) Renal hypertension (Chronic) GERD (gastroesophageal reflux disease) (Chronic) Left-sided thoracic back pain (Chronic) Spinal stenosis of lumbar region (Chronic) Wheezing (Chronic) Acute diastolic (congestive) heart failure (Chronic) History of Coumadin therapy (Chronic) Acute exacerbation of chronic obstructive airways disease (Acute) Atrial fibrillation with rapid ventricular response (Acute) Acute respiratory failure with hypoxia (Acute) Congestive heart failure (Chronic) Asthma with COPD (Chronic) Medical History Acute diastolic (congestive) heart failure Acute exacerbation of chronic obstructive airways disease Acute respiratory failure with hypoxia Anemia Asthma with COPD Atrial fibrillation Atrial fibrillation with rapid ventricular response Balanoposthitis Benign hypertension with CKD (chronic kidney disease) stage III Bladder neck obstruction Chronic obstructive pulmonary disease without exacerbation Congestive heart failure Coronary artery disease GERD (gastroesophageal reflux disease) History of blood transfusion History of Coumadin therapy IgA monoclonal gammopathy of uncertain significance Left-sided thoracic back pain Localized edema due to fluid overload Normocytic normochromic anemia BEATA treated with BiPAP Other intervertebral disc degeneration, thoracolumbar region Prostate cancer Pure hypercholesterolemia, unspecified Renal hypertension Right hip pain Sleep apnea Sleep apnea with use of continuous positive airway pressure (CPAP) Spasm of muscle of lower back Spinal stenosis of lumbar region Stress incontinence, male Wheezing Surgical History History of cataract surgery (~2006) History of left knee surgery (~1988) History of lumbar laminectomy (~2006) History of prostate surgery (~2008) scar tissue removal from prostate History of prostatectomy (09/05/08) History of tonsillectomy Family History Father , strokes No problems noted. Other No pertinent family history Social History Smoking Status: Former smoker Alcohol Intake Frequency: does not drink Substance Use: does not use Exam Narrative Narrative: Narrative: General Limitations: no limitations Course Vital Signs Vital signs: Vital Signs Temperature 97.8 F 05/15/21 03:48 Pulse Rate 122 H 05/15/21 03:48 Respiratory Rate 24 H 05/15/21 03:48 Blood Pressure 131/98 05/15/21 03:48 Pulse Oximetry (%) 79 L 05/15/21 03:48 Temperature 97.8 F 05/15/21 03:48 Pulse Rate 70 05/15/21 13:01 Respiratory Rate 31 H 05/15/21 13:43 Blood Pressure 137/85 05/15/21 13:16 Pulse Oximetry (%) 97 05/15/21 13:01 [facility] MDM Narrative Medical decision making narrative: Narrative: Patient was signed out to me from Dr. Rivera. Patient presents with shortness of breath patient was hypoxic upon arrival. Work-up is concerning for CHF exacerbation and possible pneumonia as well. Patient was given IV Lasix, he was started on Rocephin and azithromycin. BiPAP for work of breathing. BiPAP was titrated off patient was placed on a few liters nasal cannula he tolerated this. Patient's heart rate did have some fluctuations but on average was right around the 100. I spoke with the hospitalist and spoke with the patient's family family would like to treat CHF exacerbation and pneumonia they would not want CPR or intubation. Patient will be admitted to the hospitalist. Lab Data Result diagrams: 05/15/21 03:59 05/15/21 03:59 Labs: Lab Results 05/15/21 05/15/21 05/15/21 Range/Units 03:59 03:59 03:59 WBC 13.2 H (4.5-11.0) K/mcL RBC 3.22 L (4.63-6.08) M/mcL Hgb 10.0 L (13.7-17.5) g/dL Hct 30.5 L (40.1-51.0) % MCV 94.7 (80.0-100.0) fL MCH 31.1 (26.0-34.0) pg MCHC 32.8 (31.0-36.0) g/dL RDW 15.9 H (11.5-14.5) % Plt Count 444 H (140-440) K/mcL MPV 9.9 (7.4-10.4) fL Neut % (Auto) 81.6 H (38.0-78.0) % Lymph % (Auto) 8.2 L (15.5-49.0) % [place] % (Auto) 9.0 (1.0-12.0) % Eos % (Auto) 0.9 (0.0-7.0) % Baso % (Auto) 0.3 (0.0-2.0) % Lymph # (Auto) 1.08 L (1.50-4.80) K/mcL [place] # (Auto) 1.19 H (0.10-0.90) K/mcL Eos # (Auto) 0.12 (0.00-0.70) K/mcL Baso # (Auto) 0.04 (0.00-0.30) K/mcL Absolute Neutrophils 10.73 H (1.80-8.00) K/mcL POC PT (11.9-14.5) sec POC INR (0.8-1.2) Sodium 136 (133-145) mmol/L Potassium 3.6 (3.3-5.1) mmol/L Chloride 93 L (96-108) mmol/L Carbon Dioxide 28 (22-30) mmol/L Anion Gap 15.0 (8.0-16.0) BUN 31 H (8-23) mg/dL Creatinine 2.0 H (0.7-1.2) mg/dL POC Creatinine (0.6-1.2) mg/dL GFR Calculation 29 Glucose 140 H (70-105) mg/dL Calcium 9.5 (8.6-10.4) mg/dL Troponin T 0.06 H* (<0.03) ng/mL NT-Pro-B Natriuret Pep 3176.0 H (<450.0) pg/mL 05/15/21 05/15/21 05/15/21 Range/Units 03:59 04:09 07:10 WBC (4.5-11.0) K/mcL RBC (4.63-6.08) M/mcL Hgb (13.7-17.5) g/dL Hct (40.1-51.0) % MCV (80.0-100.0) fL MCH (26.0-34.0) pg MCHC (31.0-36.0) g/dL RDW (11.5-14.5) % Plt Count (140-440) K/mcL MPV (7.4-10.4) fL Neut % (Auto) (38.0-78.0) % Lymph % (Auto) (15.5-49.0) % [place] % (Auto) (1.0-12.0) % Eos % (Auto) (0.0-7.0) % Baso % (Auto) (0.0-2.0) % Lymph # (Auto) (1.50-4.80) K/mcL [place] # (Auto) (0.10-0.90) K/mcL Eos # (Auto) (0.00-0.70) K/mcL Baso # (Auto) (0.00-0.30) K/mcL Absolute Neutrophils (1.80-8.00) K/mcL POC PT 45.5 H (11.9-14.5) sec POC INR 4.1 H (0.8-1.2) Sodium (133-145) mmol/L Potassium (3.3-5.1) mmol/L Chloride (96-108) mmol/L Carbon Dioxide (22-30) mmol/L Anion Gap (8.0-16.0) BUN (8-23) mg/dL Creatinine (0.7-1.2) mg/dL POC Creatinine 2.1 H (0.6-1.2) mg/dL GFR Calculation Glucose (70-105) mg/dL Calcium (8.6-10.4) mg/dL Troponin T 0.06 H* (<0.03) ng/mL NT-Pro-B Natriuret Pep (<450.0) pg/mL ED POC Tests ED POC Tests: ROSITA - Influenza A Negative ROSITA - Influenza B Negative ROSITA - SARS Antigen Negative Discharge Plan Patient/Caregiver Discharge Instructions Pt seen by BINGO FLOATER/PA only: No Clinical Impression: Acute exacerbation of CHF (congestive heart failure), Acute pneumonia Patient Disposition: Xfer As Inpt ([facility]) Condition: Serious Discharge Date/Time: 05/15/21 14:10
--- NOTE | 2021-05-15 09:49 | EKG ---
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
[2021-05-15] MEDS ORDERED: WARFARIN 5 MG TABLET PO SCH (11:15)
[2021-05-15] MEDS ORDERED: guaiFENesin/DEXTROMETHORPHAN ORAL SOL PO PRN (11:20)
--- NOTE | 2021-05-15 11:20 | Internal Med History&Physical ---
HPI History of Present Illness Patient information: Note initiated : 05/15/21 at 11:12 am Service Date, if different from initiated Date: [] Patient: Yoav Álvarez 89 y/o M admitted on for SHORTNESS OF BREATH. Chief Complaint: [general body weakness, shortness of breath] History of present illness: Mr. 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 Last prior similar episode was 4 years ago. He is vaccinated against Covid pneumonia. 2 days ago he started to experience gradual onset, gradually worsening general body weakness together with shortness of breath. He is also complaining of productive cough as well as respiratory wheezings. He is committing of chest tightness whenever he coughs. He denies any fever, chills, or diaphoresis. Positive for orthopnea and he sleeps on recliner or specialty chairs. Denies any leg swelling. He is also complaining of decreasing appetite. He lost 40 pounds over the past 8 months. This morning when he woke up he felt increasingly short of breath so he called EMS and his oxygen saturations was found to be 82% on room air. Vital signs otherwise significant for elevated rate of breathing up to 30s breaths per minutes. Afebrile. Labs significant for leukocytosis with WBC 13.2. Serum creatinine level 2.1 with baseline 1.9. Serum troponin level 0.06x2. Serum BNP 3176. Chest x-ray showing moderate patchy right basilar infiltrate with probable superimposed mild CHF. Constitutional Constitutional: Present weakness; Absent chills, excessive sweating, fatigue or fever(s) EENT Eyes: Absent blurry vision, change in vision, loss of vision or other visual disturbances Ears: Absent decreased hearing or tinnitus Nose, mouth and throat: Absent abnormal hearing, dry mouth, headache(s), nasal congestion or sore throat Cardiovascular Cardiovascular: Absent chest pain, chest pain at rest, edema, irregular heart rhythm or palpatations Respiratory Respiratory: Present cough, dyspnea, wheezing and excessive phlegm production Gastrointestinal Gastrointestinal: Absent abdominal pain, constipation, diarrhea, nausea or vomiting Musculoskeletal Musculoskeletal: Absent back pain, deformity, limited range of motion, muscle cramps, muscle weakness or numbness Integumentary Integumentary: Absent lesions, rash or wounds Neurological Neurological: Absent focal weakness, headache(s) or numbness Psychiatric Psychiatric: Absent anxiety, depression or hallucinations PFSH PFSH All Active Problems (Updated 05/15/21 @ 11:18 by Ishan Smith MD) Elevated troponin (Acute) Anemia, normocytic normochromic (Acute) Acute on chronic respiratory failure with hypoxia (Acute) Acute exacerbation of CHF (congestive heart failure) (Acute) Acute pneumonia (Acute) 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) Chronic kidney disease (CKD) stage G3b/A1, moderately decreased glomerular f iltration rate (GFR) between 30-44 mL/min/1.73 square meter and albuminuria creatinine ratio less than 30 mg/g (Chronic) BEATA treated with BiPAP (Acute) 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 CKD (chronic kidney disease) stage III (Chronic) Localized edema due to fluid overload (Chronic) Stress incontinence, male (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) Spasm of muscle of lower back (Chronic) Chronic obstructive pulmonary disease without exacerbation (Chronic) Atrial fibrillation (Chronic) Sleep apnea (Chronic) Right hip pain (Chronic) History of lumbar laminectomy (Chronic ~2006) Other intervertebral disc degeneration, thoracolumbar region (Chronic) Normocytic normochromic anemia (Chronic) Prostate cancer (Chronic) Pure hypercholesterolemia, unspecified (Chronic) 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) Renal hypertension (Chronic) GERD (gastroesophageal reflux disease) (Chronic) Left-sided thoracic back pain (Chronic) Spinal stenosis of lumbar region (Chronic) Wheezing (Chronic) Acute diastolic (congestive) heart failure (Chronic) History of Coumadin therapy (Chronic) Acute exacerbation of chronic obstructive airways disease (Acute) Atrial fibrillation with rapid ventricular response (Acute) Acute respiratory failure with hypoxia (Acute) Congestive heart failure (Chronic) Asthma with COPD (Chronic) Medical History Acute diastolic (congestive) heart failure Acute exacerbation of chronic obstructive airways disease Acute respiratory failure with hypoxia Anemia Asthma with COPD Atrial fibrillation Atrial fibrillation with rapid ventricular response Balanoposthitis Benign hypertension with CKD (chronic kidney disease) stage III Bladder neck obstruction Chronic obstructive pulmonary disease without exacerbation Congestive heart failure Coronary artery disease GERD (gastroesophageal reflux disease) History of blood transfusion History of Coumadin therapy IgA monoclonal gammopathy of uncertain significance Left-sided thoracic back pain Localized edema due to fluid overload Normocytic normochromic anemia BEATA treated with BiPAP Other intervertebral disc degeneration, thoracolumbar region Prostate cancer Pure hypercholesterolemia, unspecified Renal hypertension Right hip pain Sleep apnea Sleep apnea with use of continuous positive airway pressure (CPAP) Spasm of muscle of lower back Spinal stenosis of lumbar region Stress incontinence, male Wheezing Surgical History History of cataract surgery (~2006) History of left knee surgery (~1988) History of lumbar laminectomy (~2006) History of prostate surgery (~2008) scar tissue removal from prostate History of prostatectomy (09/05/08) History of tonsillectomy Family History Father , strokes No problems noted. Other No pertinent family history Social History alcohol intake frequency: does not drink substance use type: does not use MEDS/ALLERGIES Home Medications and Allergies Home Medications Medication Instructions Recorded Confirmed Type valacyclovir 500 mg tablet 500 mg PO BIDP PRN 09/20/16 04/19/21 History potassium chloride 10 mEq 10 meq PO QDAY tab 10/17/16 05/15/21 History tablet,extended release warfarin 5 mg tablet See Rx Instructions .ROUTE .COMPLEX 10/17/16 05/15/21 History budesonide 0.5 mg/2 mL suspension 0.5 mg INHALATION BID ml 11/20/16 04/19/21 History for nebulization fluticasone propionate 50 50 mcg INTRANASAL DAILY 12/17/16 04/19/21 History mcg/actuation nasal spray,suspension atorvastatin 40 mg tablet 40 mg PO HS 06/13/17 05/15/21 History cetirizine 10 mg capsule 10 mg PO DAILY cap 03/04/18 05/15/21 History ipratropium 0.5 mg-albuterol 3 mg 3 ml INHALATION Q6H ml 03/04/18 04/19/21 History (2.5 mg base)/3 mL nebulization soln warfarin 2.5 mg tablet 2.5 mg PO SUTUWETHFRSA@2100 07/15/18 04/19/21 History CPAP #1 ea 10/12/19 04/19/21 History albuterol sulfate 90 mcg/actuation 2 puff INHALATION QIDP PRN #18 g 10/12/19 04/19/21 Rx aerosol inhaler (ProAir HFA) hydrocortisone 1 % topical cream 1 applic TOPICAL BID PRN 12/21/19 04/19/21 History (Anti-Itch (hydrocortisone)) metolazone 2.5 mg tablet 2.5 mg PO PRN PRN 12/21/19 04/19/21 History allopurinol 300 mg tablet 150 mg PO HS #45 tab 08/28/20 05/15/21 Rx diltiazem HCl 180 mg 180 mg PO QDAY #30 cap 12/19/20 05/15/21 History capsule,extended release 24 hr furosemide 20 mg tablet 40 mg PO BID tab 12/19/20 05/15/21 History omeprazole 20 mg capsule,delayed 20 mg PO QDAY 05/15/21 05/15/21 History release Allergies Allergy/AdvReac Type Severity Reaction Status Date / Time Imipramine AdvReac Mild Other Verified 04/19/21 14:41 EXAM Constitutional Vitals: Temp Pulse Resp BP Pulse Ox 36.6 C 105 H 31 H 118/74 95 05/15/21 03:48 05/15/21 11:01 05/15/21 11:01 05/15/21 11:01 05/15/21 11:01 General appearance: cooperative, no acute distress and obese Head Head exam: Present atraumatic and normocephalic Eye Eye exam: Present EOMI and PERRL ENT ENT exam: Present mucous membranes moist, normal exam and normal external ear exam Additional comments: Nasal cannula in place Neck Neck exam: Present normal inspection; Absent lymphadenopathy, tenderness or thyromegaly Respiratory Respiratory exam: Present decreased breath sounds and rhonchi; Absent accessory muscle use, CTAB, respiratory distress or wheezes Cardiovascular Cardiovascular exam: Present irregular rhythm and tachycardia; Absent JVD GI/Abdominal GI/Abdominal exam: Present normal bowel sounds and soft; Absent organomegaly or tenderness Rectal Rectal exam: Present deferred Extremities Exam Extremities exam: Present full ROM, normal capillary refill and normal inspection; Absent tenderness Neurological Exam Neurological exam: Present alert, CN II-XII intact and oriented X3; Absent motor sensory deficit Psychiatric Psychiatric exam: Present normal affect and normal mood; Absent anxious or depressed Skin Skin exam: Present dry and intact DATA Data Completed and Pending Labs: Labs from last 24 hours 05/15/21 05/15/21 05/15/21 07:10 04:09 03:59 WBC RBC Hgb Hct MCV MCH MCHC RDW Plt Count MPV Neut % (Auto) Lymph % (Auto) [place] % (Auto) Eos % (Auto) Baso % (Auto) Lymph # (Auto) [place] # (Auto) Eos # (Auto) Baso # (Auto) Absolute Neutrophils POC PT 45.5 H POC INR 4.1 H Sodium Potassium Chloride Carbon Dioxide Anion Gap BUN Creatinine POC Creatinine 2.1 H GFR Calculation Glucose Calcium Troponin T 0.06 H* NT-Pro-B Natriuret Pep 05/15/21 05/15/21 05/15/21 03:59 03:59 03:59 WBC 13.2 H RBC 3.22 L Hgb 10.0 L Hct 30.5 L MCV 94.7 MCH 31.1 MCHC 32.8 RDW 15.9 H Plt Count 444 H MPV 9.9 Neut % (Auto) 81.6 H Lymph % (Auto) 8.2 L Kem[place] % (Auto) 9.0 Eos % (Auto) 0.9 Baso % (Auto) 0.3 Lymph # (Auto) 1.08 L Kem[place] # (Auto) 1.19 H Eos # (Auto) 0.12 Baso # (Auto) 0.04 Absolute Neutrophils 10.73 H POC PT POC INR Sodium 136 Potassium 3.6 Chloride 93 L Carbon Dioxide 28 Anion Gap 15.0 BUN 31 H Creatinine 2.0 H POC Creatinine GFR Calculation 29 Glucose 140 H Calcium 9.5 Troponin T 0.06 H* NT-Pro-B Natriuret Pep 3176.0 H A/P Assessment and plan (1) Acute exacerbation of CHF (congestive heart failure): Status: Acute (2) Acute on chronic respiratory failure with hypoxia: Status: Acute (3) BEATA treated with BiPAP: Status: Acute (4) Asthma with COPD: Status: Chronic (5) Atrial fibrillation with rapid ventricular response: Status: Acute (6) GERD (gastroesophageal reflux disease): Status: Chronic Qualifiers: Esophagitis presence: esophagitis presence not specified Qualified Code(s): K21.9 - Gastro-esophageal reflux disease without esophagitis (7) Benign hypertension with CKD (chronic kidney disease) stage III: Status: Chronic (8) Anemia, normocytic normochromic: Status: Acute (9) Elevated troponin: Status: Acute Narrative A/P Narrative: Assessment and Plans: 1. Community acquired pneumonia: Admit to inpatient med surg telemetry Lactic acid Procalcitonin Blood culture Sputum culture cbc w/ auto diff in the morning to trend WBC level Supplemental oxygen therapy titrate to achieve spo2>=88% given COPD-er Rocephin Zithromax Tylenol PRN fever Robitussin DM PRN cough DuoNEB NEB PRN wheezing 2.CHF exacerbation: Strict intake and output Daily weigh 2L/day fluid restriction No beta valentina during exacerbation phase Lasix 20mg IV BID Lisinopril 2.5mg PO daily 2D echocardiogram Supplemental oxygen therapy titrate to achieve spo2>=88% given COPD-er 3. COPD with asthma, stable: Continue home regimen of bronchodilators DuoNEB NEB q4hr PRN wheezing 4. Atrial fibrillation on Coumadin: Diltiazem for rate control Coumadin with daily INR for pharmacy assisted dosing 5. Anemia, normocytic normochromic: Daily cbc w/ auto diff to trend H/H; transfuse pRBC if Hemoglobin<7.0, active bleeding, or symptomatic Need outpatient endoscopy 5. Essential HTN with CKD stage 3: Baseline serum Cr level 1.9, currently 2.1, either DALIA on CKD, or progression of CKD Currently normotensives Avoid nephrotoxic agents Saline lock, fluid restriction, and Lasix Continue Diltiazem, add Lisinopril for renal protection Daily CMP to trend kidney functions 6. BEATA on BiPAP at night: Continue BiPAP at night while sleeping 7. GERD: Continue oral PPI from home regimen GI ppx: Continue oral PPI from home regimen DVT ppx: Coumadin Code status: DNI DNR Prognosis: guarded Disposition: inpatient med surg telemetry Time Spent With Patient Time: Total time spent is greater than 50% in coordination of care (as documented) at patient's floor/unit and/or counseling patient: Total time spent with greater than 50% in coordination of care (as documented) at patient's floor/unit and/or counseling patient:: Greater than 35 minutes
[2021-05-15] MEDS ORDERED: ZOLPIDEM 5 MG TABLET PO PRN (14:27)
[2021-05-15] MEDS ORDERED: ONDANSETRON 4 MG/2 ML VIAL IV PRN (14:27)
[2021-05-15] MEDS ORDERED: cefTRIAXone 1 GM in DEXTROSE 5% IN WATER 50 ML IV SCH (14:27)
[2021-05-15] MEDS ORDERED: IPRATROPIUM/ALBUTEROL 3 ML AMPUL.NEB NEB PRN (14:27)
[2021-05-15] MEDS ORDERED: ACETAMINOPHEN 325 MG TABLET PO PRN (14:27)
[2021-05-15] MEDS: IPRATROPIUM/ALBUTEROL 3 ML AMPUL.NEB NEB SCH ×2 (14:49→20:25)
[2021-05-15] MEDS: FUROSEMIDE 20 MG/2 ML VIAL IV SCH (15:31)
[2021-05-15] MEDS: 0.9 % SODIUM CHLORIDE 10 ML SYRINGE IV SCH ×2 (15:31→21:14)
[2021-05-15] MEDS: BUDESONIDE 0.5 MG/2 ML AMPUL.NEB NEB SCH (20:25)
[2021-05-15] MEDS: ALLOPURINOL 100 MG TABLET PO SCH (21:13)
[2021-05-15] MEDS: ATORVASTATIN 40 MG TABLET PO SCH (21:13)
[2021-05-15] MEDS: SENNOSIDES 1 TABLET PO SCH (21:14)
[2021-05-15] MEDS: DOCUSATE SODIUM 100 MG CAPSULE PO SCH (21:14)
[2021-05-16] MEDS: IPRATROPIUM/ALBUTEROL 3 ML AMPUL.NEB NEB SCH ×2 (01:40→07:36)
[2021-05-16] MEDS: 0.9 % SODIUM CHLORIDE 10 ML SYRINGE IV SCH ×3 (04:56→21:13)
[2021-05-16 06:42] LABS: Basophils # (Auto) 0.03 K/mcL (0.00-0.30); Basophils % (Auto) 0.4 % (0.0-2.0); Eosinophils # (Auto) 0.21 K/mcL (0.00-0.70); Eosinophils % (Auto) 2.5 % (0.0-7.0); Hematocrit 28.7 % (40.1-51.0); Hemoglobin 9.4 g/dL (13.7-17.5); Lymphocytes % (Auto) 12.9 % (15.5-49.0); Mean Cell Volume 95.3 fL (80.0-100.0); Mean Corpuscular HGB Conc 32.8 g/dL (31.0-36.0); Mean Platelet Volume 9.6 fL (7.4-10.4); Monocytes # (Auto) 0.91 K/mcL (0.10-0.90); Monocytes % (Auto) 10.6 % (1.0-12.0); Neutrophils % (Auto) 73.6 % (38.0-78.0); Platelet Count 375 K/mcL (140-440); RBC 3.01 M/mcL (4.63-6.08); Red Cell Distribution Width 15.9 % (11.5-14.5); WBC 8.6 K/mcL (4.5-11.0)
[2021-05-16 07:07] LABS: ALT/SGPT 11 U/L (<40); AST/SGOT 14 U/L (<40); Albumin 3.4 gm/dL (3.2-5.2); Albumin/Globulin Ratio 1.1 (1.0-2.3); Alkaline Phosphatase 139 U/L (39-117); Bilirubin,Total 0.4 mg/dL (0.1-1.0); Blood Urea Nitrogen 27 mg/dL (8-23); Calcium 9.7 mg/dL (8.6-10.4); Carbon Dioxide 31 mmol/L (22-30); Chloride 96 mmol/L (96-108); Glomerular Filtration Rate 35; Glucose 125 mg/dL (70-105); Phosphorous 4.8 mg/dL (2.5-4.5)
[2021-05-16 07:10] LABS: INR 2.6 (0.9-1.1); Prothrombin Time 29.4 sec (11.9-14.5)
[2021-05-16] MEDS: OMEPRAZOLE 20 MG CAPSULE PO SCH (07:36)
[2021-05-16] MEDS: FUROSEMIDE 20 MG/2 ML VIAL IV SCH ×2 (07:37→16:00)
[2021-05-16] MEDS: POTASSIUM CHLORIDE 10 MEQ TABLET PO SCH (07:37)
[2021-05-16] MEDS: DILTIAZEM 180 MG CAP.XL.24H PO SCH (08:18)
[2021-05-16] MEDS: CETIRIZINE 10 MG TABLET PO SCH (09:02)
[2021-05-16] MEDS: cefTRIAXone 1 GM VIAL IV SCH (09:02)
[2021-05-16] MEDS: DOCUSATE SODIUM 100 MG CAPSULE PO SCH ×2 (09:02→21:10)
[2021-05-16] MEDS: LISINOPRIL 2.5 MG TABLET PO SCH (09:02)
[2021-05-16] MEDS: AZITHROMYCIN 500 MG in DEXTROSE 5% IN WATER 250 ML IV SCH (09:03)
[2021-05-16] MEDS: FLUTICASONE PROPIONATE SPRAY.NAS NS SCH (09:04)
[2021-05-16] MEDS ORDERED: LEVALBUTEROL 1.25 MG/3 ML AMPUL.NEB NEB PRN (10:15)
--- NOTE | 2021-05-16 11:34 | Internal Med Progress Note ---
SUBJECTIVE Subjective Patient information: Note initiated : 05/16/21 at 11:29 am Service Date, if different from initiated Date: [] Patient: Yoav Álvarez 89 y/o M admitted on 05/15/21 for SHORTNESS OF BREATH. Chief Complaint: [] Interval history: Mr. 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 Last prior similar episode was 4 years ago. He is vaccinated against Covid pneumonia. 2 days ago he started to experience gradual onset, gradually worsening general body weakness together with shortness of breath. He is also complaining of productive cough as well as respiratory wheezings. He is committing of chest tightness whenever he coughs. He denies any fever, chills, or diaphoresis. Positive for orthopnea and he sleeps on recliner or specialty chairs. Denies any leg swelling. He is also complaining of decreasing appetite. He lost 40 pounds over the past 8 months. This morning when he woke up he felt increasingly short of breath so he called EMS and his oxygen saturations was found to be 82% on room air. Vital signs otherwise significant for elevated rate of breathing up to 30s breaths per minutes. Afebrile. Labs significant for leukocytosis with WBC 13.2. Serum creatinine level 2.1 with baseline 1.9. Serum troponin level 0.06x2. Serum BNP 3176. Chest x-ray showing moderate patchy right basilar infiltrate with probable superimposed mild CHF. 05/16: Afebrile overnight. [place] negative. Blood and sputum cultures no growth to date. On 3L/min overnight and currently. Improving SOB. c/o productive cough with yellow sputum. Denies wheezing or chest pain. c/o chills, denies any fever or sweating. Constitutional Vitals: Vital Signs Temp Pulse Resp BP Pulse Ox 37.1 C 77 26 H 134/70 95 05/16/21 08:00 05/16/21 08:00 05/16/21 08:00 05/16/21 08:00 05/16/21 08:00 Period Temp Pulse Resp BP Sys/Cruz Pulse Ox Last 24 Hr 36.4 C-37.2 C 32-126 17-32 128-160/69-102 89-97 Intake and Output 05/15/21 05/16/21 05/16/21 21:59 05:59 13:59 Intake Total 200 500 Output Total 500 1000 Balance -500 -800 500 Weight 92.079 kg Intake & Output: Intake & Output 05/15/21 05/16/21 05/16/21 21:59 05:59 13:59 Intake Total 200 500 Output Total 500 1000 Balance -500 -800 500 Weight 92.079 kg Intake: Oral 200 500 Output: Urine Catheter Amount 500 1000 Other: Meal Breakfast Percent of Meal Consumed 100% Feeding Ability Assist with Tray Set Up Urine Appearance Clear Cloudy Suprapubic Clear Urine Color Bright Yellow Tea Colored Suprapubic Bright Yellow Stool Size Large Stool Color Brown Stool Consistency Soft Formed # Bowel Movements 1 General appearance: cooperative, no acute distress and obese Head Head exam: Present atraumatic and normal inspection Eye Eye exam: Present normal appearance ENT ENT exam: Present mucous membranes moist, normal exam and normal external ear exam Additional comments: Nasal cannula in place Neck Neck exam: Present normal inspection Respiratory Respiratory exam: Present normal respiratory exam, rhonchi and wheezes Cardiovascular Cardiovascular exam: Present irregular rhythm GI/Abdominal GI/Abdominal exam: Present normal bowel sounds Back Exam Back exam: Present normal inspection Neurological Exam Neurological exam: Present alert and oriented X3 Skin Skin exam: Present intact and warm OBJ DATA Labs CBC & Chem 7: 05/16/21 05:40 05/16/21 05:40 Labs: Abnormal Lab Results 05/16/21 05/16/21 05/16/21 05:40 05:40 05:40 WBC RBC Hgb Hct RDW Plt Count Neut % (Auto) Lymph % (Auto) Lymph # (Auto) [place] # (Auto) Absolute Neutrophils POC PT PT 29.4 H POC INR INR 2.6 H Potassium 3.2 L Chloride Carbon Dioxide 31 H BUN 27 H Creatinine 1.7 H POC Creatinine Glucose 125 H Phosphorus 4.8 H Alkaline Phosphatase 139 H Troponin T 0.05 H* NT-Pro-B Natriuret Pep Procalcitonin 05/16/21 05/16/21 05/15/21 05:40 00:14 14:38 WBC RBC 3.01 L Hgb 9.4 L Hct 28.7 L RDW 15.9 H Plt Count Neut % (Auto) Lymph % (Auto) 12.9 L Lymph # (Auto) 1.10 L [place] # (Auto) 0.91 H Absolute Neutrophils POC PT PT POC INR INR Potassium Chloride Carbon Dioxide BUN Creatinine POC Creatinine Glucose Phosphorus Alkaline Phosphatase Troponin T 0.06 H* 0.05 H* NT-Pro-B Natriuret Pep Procalcitonin 05/15/21 05/15/21 05/15/21 14:38 07:10 04:09 WBC RBC Hgb Hct RDW Plt Count Neut % (Auto) Lymph % (Auto) Lymph # (Auto) [place] # (Auto) Absolute Neutrophils POC PT PT POC INR INR Potassium Chloride Carbon Dioxide BUN Creatinine POC Creatinine 2.1 H Glucose Phosphorus Alkaline Phosphatase Troponin T 0.06 H* NT-Pro-B Natriuret Pep Procalcitonin 0.20 H 05/15/21 05/15/21 05/15/21 03:59 03:59 03:59 WBC RBC Hgb Hct RDW Plt Count Neut % (Auto) Lymph % (Auto) Lymph # (Auto) [place] # (Auto) Absolute Neutrophils POC PT 45.5 H PT POC INR 4.1 H INR Potassium Chloride 93 L Carbon Dioxide BUN 31 H Creatinine 2.0 H POC Creatinine Glucose 140 H Phosphorus Alkaline Phosphatase Troponin T 0.06 H* NT-Pro-B Natriuret Pep 3176.0 H Procalcitonin 05/15/21 03:59 WBC 13.2 H RBC 3.22 L Hgb 10.0 L Hct 30.5 L RDW 15.9 H Plt Count 444 H Neut % (Auto) 81.6 H Lymph % (Auto) 8.2 L Lymph # (Auto) 1.08 L [place] # (Auto) 1.19 H Absolute Neutrophils 10.73 H POC PT PT POC INR INR Potassium Chloride Carbon Dioxide BUN Creatinine POC Creatinine Glucose Phosphorus Alkaline Phosphatase Troponin T NT-Pro-B Natriuret Pep Procalcitonin Meds: Medications Acetaminophen (Acetaminophen 325 Mg Tablet) 650 mg PO Q6HP PRN; Protocol PRN Reason: Per Pain Protocol/Fever > 101 Allopurinol (Allopurinol 100 Mg Tablet) 50 mg PO HS [facility] Last Admin: 05/15/21 21:13 Dose: 50 mg Documented by: Atorvastatin Calcium (Atorvastatin 40 Mg Tablet) 40 mg PO HS [facility] Last Admin: 05/15/21 21:13 Dose: 40 mg Documented by: Budesonide (Budesonide 0.5 Mg/2 Ml Ampul.Neb) 0.5 mg NEB BID [facility] Last Admin: 05/15/21 20:25 Dose: 0.5 mg Documented by: Ceftriaxone Sodium (Ceftriaxone 1 Gm Vial) 1 gm IV DAILY [facility] Last Admin: 05/16/21 09:02 Dose: 1 gm Documented by: Cetirizine HCl (Cetirizine 10 Mg Tablet) 10 mg PO DAILY [facility] Last Admin: 05/16/21 09:02 Dose: 10 mg Documented by: Diltiazem HCl (Diltiazem 180 Mg Cap.Xl.24h) 180 mg PO QDAY [facility] Last Admin: 05/16/21 08:18 Dose: 180 mg Documented by: Docusate Sodium (Docusate Sodium 100 Mg Capsule) 100 mg PO BID [facility] Last Admin: 05/16/21 09:02 Dose: 100 mg Documented by: Fluticasone Propionate (Fluticasone Propionate [place].Teo) 1 spray NS DAILY [facility] Last Admin: 05/16/21 09:04 Dose: Not Given Documented by: Furosemide (Furosemide 20 Mg/2 Ml Vial) 20 mg IV BIDD [facility] Last Admin: 05/16/21 07:37 Dose: 20 mg Documented by: Guaifenesin (Guaifenesin/Dextromethorphan Oral [place]) 10 ml PO Q4HP PRN PRN Reason: Cough Azithromycin 500 mg/ Dextrose 250 mls @ 250 mls/hr IV DAILY [facility]; Protocol Stop: 05/17/21 09:59 Last Admin: 05/16/21 09:03 Dose: 250 mls/hr Documented by: Levalbuterol HCl (Levalbuterol 1.25 Mg/3 Ml Ampul.Neb) 1.25 mg NEB Q6H [facility] Levalbuterol HCl (Levalbuterol 1.25 Mg/3 Ml Ampul.Neb) 1.25 mg NEB Q4HRT PRN PRN Reason: Wheezing Lisinopril (Lisinopril 2.5 Mg Tablet) 2.5 mg PO DAILY [facility] Last Admin: 05/16/21 09:02 Dose: 2.5 mg Documented by: Omeprazole (Omeprazole 20 Mg Capsule) 20 mg PO ACB [facility] Last Admin: 05/16/21 07:36 Dose: 20 mg Documented by: Ondansetron HCl (Ondansetron 4 Mg/2 Ml Vial) 4 mg IV Q6HP PRN PRN Reason: Nausea And Vomiting Potassium Chloride (Potassium Chloride 10 Meq Tablet) 10 meq PO QAMCC [facility] Last Admin: 05/16/21 07:37 Dose: 10 meq Documented by: Senna (Sennosides 1 Tablet) 2 tab PO HS [facility] Last Admin: 05/15/21 21:14 Dose: Not Given Documented by: Sodium Chloride (0.9 % Sodium Chloride 10 Ml Syringe) 10 ml IV Q8 [facility] Last Admin: 05/16/21 04:56 Dose: 10 ml Documented by: Warfarin Sodium (Warfarin Per Pharmacy) 1 order PO UD [facility] Warfarin Sodium (Warfarin 2.5 Mg Tablet) 2.5 mg PO ONCE@1400 ONE Stop: 05/16/21 14:01 Zolpidem Tartrate (Zolpidem 5 Mg Tablet) 5 mg PO HSP PRN PRN Reason: Insomnia A/P Assessment and plan (1) Acute exacerbation of CHF (congestive heart failure): Status: Acute (2) Acute on chronic respiratory failure with hypoxia: Status: Acute (3) BEATA treated with BiPAP: Status: Acute (4) Asthma with COPD: Status: Chronic (5) Atrial fibrillation with rapid ventricular response: Status: Acute (6) GERD (gastroesophageal reflux disease): Status: Chronic Qualifiers: Esophagitis presence: esophagitis presence not specified Qualified Code(s): K21.9 - Gastro-esophageal reflux disease without esophagitis (7) Benign hypertension with CKD (chronic kidney disease) stage III: Status: Chronic (8) Anemia, normocytic normochromic: Status: Acute (9) Elevated troponin: Status: Acute Narrative A/P Narrative: Assessment and Plans: 1. Community acquired pneumonia: Stays in inpatient med surg telemetry Lactic acid 0.7 Procalcitonin 0.20 Blood culture, no growth to date Sputum culture, no growth to date cbc w/ auto diff in the morning to trend WBC level Supplemental oxygen therapy titrate to achieve spo2>=88% given COPD-er, currently on 3L/min oxygen Rocephin Zithromax Tylenol PRN fever Robitussin DM PRN cough DuoNEB NEB PRN wheezing 2.CHF exacerbation: Strict intake and output Daily weigh 2L/day fluid restriction No beta valentina during exacerbation phase Lasix 20mg IV BID Lisinopril 2.5mg PO daily 2D echocardiogram, results pending Supplemental oxygen therapy titrate to achieve spo2>=88% given COPD-er, currently on 3L/min oxygen 3. COPD with asthma, stable: Continue home regimen of bronchodilators DuoNEB NEB q4hr PRN wheezing 4. Atrial fibrillation on Coumadin: Diltiazem for rate control Coumadin with daily INR for pharmacy assisted dosing 5. Anemia, normocytic normochromic: Daily cbc w/ auto diff to trend H/H; transfuse pRBC if Hemoglobin<7.0, active bleeding, or symptomatic Need outpatient endoscopy 5. Essential HTN with CKD stage 3: Baseline serum Cr level 1.9, currently 1.7, either DALIA on CKD, or progression of CKD Currently normotensives Avoid nephrotoxic agents Saline lock, fluid restriction, and Lasix Continue Diltiazem, add Lisinopril for renal protection Daily CMP to trend kidney functions 6. BEATA on BiPAP at night: Continue BiPAP at night while sleeping 7. GERD: Continue oral PPI from home regimen 8. Elevated serum troponin level: Serial troponin level, down-trending GI ppx: Continue oral PPI from home regimen DVT ppx: Coumadin Code status: DNI DNR Prognosis: guarded Disposition: inpatient med surg telemetry Time Spent With Patient Time: Total time spent is greater than 50% in coordination of care (as documented) at patient's floor/unit and/or counseling patient: Total time spent with greater than 50% in coordination of care (as documented) at patient's floor/unit and/or counseling patient:: Greater than 35 minutes QUALITY VTE Deep Vein Thrombosis/Pulmonary Embolism Present on Admission: No
[2021-05-16] MEDS: BUDESONIDE 0.5 MG/2 ML AMPUL.NEB NEB SCH ×2 (12:38→19:32)
[2021-05-16] MEDS: LEVALBUTEROL 1.25 MG/3 ML AMPUL.NEB NEB SCH ×2 (12:40→19:32)
[2021-05-16] MEDS ORDERED: WARFARIN 2.5 MG TABLET PO ONE (14:00)
[2021-05-16] MEDS: ALLOPURINOL 100 MG TABLET PO SCH (21:10)
[2021-05-16] MEDS: ATORVASTATIN 40 MG TABLET PO SCH (21:10)
[2021-05-16] MEDS: SENNOSIDES 1 TABLET PO SCH (21:13)
[2021-05-17] MEDS: LEVALBUTEROL 1.25 MG/3 ML AMPUL.NEB NEB SCH ×4 (00:56→19:16)
[2021-05-17 06:49] LABS: Basophils # (Auto) 0.05 K/mcL (0.00-0.30); Basophils % (Auto) 0.6 % (0.0-2.0); Eosinophils # (Auto) 0.25 K/mcL (0.00-0.70); Hemoglobin 9.5 g/dL (13.7-17.5); Lymphocytes # (Auto) 1.05 K/mcL (1.50-4.80); Lymphocytes % (Auto) 12.4 % (15.5-49.0); Mean Cell Volume 96.2 fL (80.0-100.0); Mean Corpuscular HGB Conc 31.7 g/dL (31.0-36.0); Mean Platelet Volume 9.6 fL (7.4-10.4); Monocytes # (Auto) 0.94 K/mcL (0.10-0.90); Monocytes % (Auto) 11.1 % (1.0-12.0); Neutrophils % (Auto) 72.9 % (38.0-78.0); Platelet Count 396 K/mcL (140-440); RBC 3.12 M/mcL (4.63-6.08); Red Cell Distribution Width 15.9 % (11.5-14.5); WBC 8.4 K/mcL (4.5-11.0)
[2021-05-17 07:16] LABS: INR 2.2 (0.9-1.1); Prothrombin Time 25.4 sec (11.9-14.5)
[2021-05-17] MEDS: BUDESONIDE 0.5 MG/2 ML AMPUL.NEB NEB SCH ×2 (07:37→19:15)
[2021-05-17] MEDS: FUROSEMIDE 20 MG/2 ML VIAL IV SCH ×2 (07:51→16:16)
[2021-05-17] MEDS: OMEPRAZOLE 20 MG CAPSULE PO SCH (07:52)
[2021-05-17] MEDS: POTASSIUM CHLORIDE 10 MEQ TABLET PO SCH (07:52)
[2021-05-17] MEDS: 0.9 % SODIUM CHLORIDE 10 ML SYRINGE IV SCH ×3 (07:52→20:30)
[2021-05-17] MEDS: LISINOPRIL 2.5 MG TABLET PO SCH (08:24)
[2021-05-17] MEDS: DILTIAZEM 180 MG CAP.XL.24H PO SCH (08:24)
[2021-05-17] MEDS: CETIRIZINE 10 MG TABLET PO SCH (08:25)
[2021-05-17 08:26] LABS: ALT/SGPT 12 U/L (<40); AST/SGOT 16 U/L (<40); Albumin 3.3 gm/dL (3.2-5.2); Alkaline Phosphatase 141 U/L (39-117); Bilirubin,Total 0.4 mg/dL (0.1-1.0); Blood Urea Nitrogen 27 mg/dL (8-23); Calcium 9.6 mg/dL (8.6-10.4); Carbon Dioxide 32 mmol/L (22-30); Chloride 96 mmol/L (96-108); Globulin 3.2 gm/dL (2.2-3.7); Glomerular Filtration Rate 33; Glucose 125 mg/dL (70-105); Phosphorous 4.9 mg/dL (2.5-4.5)
[2021-05-17] MEDS: FLUTICASONE PROPIONATE SPRAY.NAS NS SCH (08:26)
[2021-05-17] MEDS: DOCUSATE SODIUM 100 MG CAPSULE PO SCH ×2 (08:26→20:30)
[2021-05-17] MEDS: AZITHROMYCIN 500 MG in DEXTROSE 5% IN WATER 250 ML IV SCH (08:26)
[2021-05-17] MEDS: cefTRIAXone 1 GM VIAL IV SCH (09:27)
[2021-05-17] MEDS ORDERED: PHENOL/SODIUM PHENOLATE 5 SPRAY BOTTLE 180ML SSP PRN (12:31)
--- NOTE | 2021-05-17 12:35 | Internal Med Progress Note ---
SUBJECTIVE Subjective Patient information: Note initiated : 05/17/21 at 12:31 pm Service Date, if different from initiated Date: [] Patient: Yoav Álvarez 89 y/o M admitted on 05/15/21 for SHORTNESS OF BREATH. Chief Complaint: [] Interval history: Mr. 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 Last prior similar episode was 4 years ago. He is vaccinated against Covid pneumonia. 2 days ago he started to experience gradual onset, gradually worsening general body weakness together with shortness of breath. He is also complaining of productive cough as well as respiratory wheezings. He is committing of chest tightness whenever he coughs. He denies any fever, chills, or diaphoresis. Positive for orthopnea and he sleeps on recliner or specialty chairs. Denies any leg swelling. He is also complaining of decreasing appetite. He lost 40 pounds over the past 8 months. This morning when he woke up he felt increasingly short of breath so he called EMS and his oxygen saturations was found to be 82% on room air. Vital signs otherwise significant for elevated rate of breathing up to 30s breaths per minutes. Afebrile. Labs significant for leukocytosis with WBC 13.2. Serum creatinine level 2.1 with baseline 1.9. Serum troponin level 0.06x2. Serum BNP 3176. Chest x-ray showing moderate patchy right basilar infiltrate with probable superimposed mild CHF. 05/16: Afebrile overnight. [place] negative. Blood and sputum cultures no growth to date. On 3L/min overnight and currently. Improving SOB. c/o productive cough with yellow sputum. Denies wheezing or chest pain. c/o chills, denies any fever or sweating. 05/17: Afebrile overnight. Currently on 2L/min oxygen. c/o SOB. c/o wheezing. c/o sore throat. Denies cough. Denies chest pain. Denies fever chills or sweating. Constitutional Vitals: Vital Signs Temp Pulse Resp BP Pulse Ox 36.4 C 109 H 18 153/85 91 05/17/21 07:03 05/17/21 07:38 05/17/21 07:38 05/17/21 07:03 05/17/21 07:38 Period Temp Pulse Resp BP Sys/Cruz Pulse Ox Last 24 Hr 36.4 C-36.9 C 60-112 18-30 116-153/71-85 89-97 Intake and Output 05/16/21 05/17/21 05/17/21 21:59 05:59 13:59 Intake Total 435 225 Output Total 700 850 Balance -265 -625 Weight 92.578 kg Intake & Output: Intake & Output 05/16/21 05/17/21 05/17/21 21:59 05:59 13:59 Intake Total 435 225 Output Total 700 850 Balance -265 -625 Weight 92.578 kg Intake: Oral 435 225 Output: Urine Catheter Amount 700 850 Other: Urine Appearance Clear Suprapubic Clear Clear Urine Color Dark Yellow Bright Yellow Suprapubic Straw Straw Urine Odor Strong Head Head exam: Present atraumatic and normal inspection Eye Eye exam: Present normal appearance ENT ENT exam: Present mucous membranes moist, normal exam and normal external ear exam Additional comments: Nasal cannula in place Neck Neck exam: Present normal inspection Respiratory Respiratory exam: Present rhonchi and wheezes Cardiovascular Cardiovascular exam: Present irregular rhythm GI/Abdominal GI/Abdominal exam: Present normal bowel sounds Extremities Exam Extremities exam: Present pedal edema Back Exam Back exam: Present normal inspection Neurological Exam Neurological exam: Present alert and oriented X3 Skin Skin exam: Present intact and warm OBJ DATA Labs CBC & Chem 7: 05/17/21 05:21 05/17/21 05:20 Labs: Abnormal Lab Results 05/17/21 05/17/21 05/17/21 05:21 05:20 05:20 WBC RBC 3.12 L Hgb 9.5 L Hct 30.0 L RDW 15.9 H Plt Count Neut % (Auto) Lymph % (Auto) 12.4 L Lymph # (Auto) 1.05 L [place] # (Auto) 0.94 H Absolute Neutrophils POC PT PT 25.4 H POC INR INR 2.2 H Potassium Chloride Carbon Dioxide 32 H BUN 27 H Creatinine 1.8 H POC Creatinine Glucose 125 H Phosphorus 4.9 H Alkaline Phosphatase 141 H Troponin T NT-Pro-B Natriuret Pep Procalcitonin 05/16/21 05/16/21 05/16/21 05:40 05:40 05:40 WBC RBC Hgb Hct RDW Plt Count Neut % (Auto) Lymph % (Auto) Lymph # (Auto) [place] # (Auto) Absolute Neutrophils POC PT PT 29.4 H POC INR INR 2.6 H Potassium 3.2 L Chloride Carbon Dioxide 31 H BUN 27 H Creatinine 1.7 H POC Creatinine Glucose 125 H Phosphorus 4.8 H Alkaline Phosphatase 139 H Troponin T 0.05 H* NT-Pro-B Natriuret Pep Procalcitonin 05/16/21 05/16/21 05/15/21 05:40 00:14 14:38 WBC RBC 3.01 L Hgb 9.4 L Hct 28.7 L RDW 15.9 H Plt Count Neut % (Auto) Lymph % (Auto) 12.9 L Lymph # (Auto) 1.10 L [place] # (Auto) 0.91 H Absolute Neutrophils POC PT PT POC INR INR Potassium Chloride Carbon Dioxide BUN Creatinine POC Creatinine Glucose Phosphorus Alkaline Phosphatase Troponin T 0.06 H* 0.05 H* NT-Pro-B Natriuret Pep Procalcitonin 05/15/21 05/15/21 05/15/21 14:38 07:10 04:09 WBC RBC Hgb Hct RDW Plt Count Neut % (Auto) Lymph % (Auto) Lymph # (Auto) [place] # (Auto) Absolute Neutrophils POC PT PT POC INR INR Potassium Chloride Carbon Dioxide BUN Creatinine POC Creatinine 2.1 H Glucose Phosphorus Alkaline Phosphatase Troponin T 0.06 H* NT-Pro-B Natriuret Pep Procalcitonin 0.20 H 05/15/21 05/15/21 05/15/21 03:59 03:59 03:59 WBC RBC Hgb Hct RDW Plt Count Neut % (Auto) Lymph % (Auto) Lymph # (Auto) [place] # (Auto) Absolute Neutrophils POC PT 45.5 H PT POC INR 4.1 H INR Potassium Chloride 93 L Carbon Dioxide BUN 31 H Creatinine 2.0 H POC Creatinine Glucose 140 H Phosphorus Alkaline Phosphatase Troponin T 0.06 H* NT-Pro-B Natriuret Pep 3176.0 H Procalcitonin 05/15/21 03:59 WBC 13.2 H RBC 3.22 L Hgb 10.0 L Hct 30.5 L RDW 15.9 H Plt Count 444 H Neut % (Auto) 81.6 H Lymph % (Auto) 8.2 L Lymph # (Auto) 1.08 L [place] # (Auto) 1.19 H Absolute Neutrophils 10.73 H POC PT PT POC INR INR Potassium Chloride Carbon Dioxide BUN Creatinine POC Creatinine Glucose Phosphorus Alkaline Phosphatase Troponin T NT-Pro-B Natriuret Pep Procalcitonin Meds: Medications Acetaminophen (Acetaminophen 325 Mg Tablet) 650 mg PO Q6HP PRN; Protocol PRN Reason: Per Pain Protocol/Fever > 101 Allopurinol (Allopurinol 100 Mg Tablet) 50 mg PO HS [facility] Last Admin: 05/16/21 21:10 Dose: 50 mg Documented by: Atorvastatin Calcium (Atorvastatin 40 Mg Tablet) 40 mg PO HS [facility] Last Admin: 05/16/21 21:10 Dose: 40 mg Documented by: Budesonide (Budesonide 0.5 Mg/2 Ml Ampul.Neb) 0.5 mg NEB BID [facility] Last Admin: 05/17/21 07:37 Dose: 0.5 mg Documented by: Ceftriaxone Sodium (Ceftriaxone 1 Gm Vial) 1 gm IV DAILY [facility] Last Admin: 05/17/21 09:27 Dose: 1 gm Documented by: Cetirizine HCl (Cetirizine 10 Mg Tablet) 10 mg PO DAILY [facility] Last Admin: 05/17/21 08:25 Dose: 10 mg Documented by: Diltiazem HCl (Diltiazem 180 Mg Cap.Xl.24h) 180 mg PO QDAY [facility] Last Admin: 05/17/21 08:24 Dose: 180 mg Documented by: Docusate Sodium (Docusate Sodium 100 Mg Capsule) 100 mg PO BID [facility] Last Admin: 05/17/21 08:26 Dose: 100 mg Documented by: Fluticasone Propionate (Fluticasone Propionate [place].Teo) 1 spray NS DAILY [facility] Last Admin: 05/17/21 08:26 Dose: Not Given Documented by: Furosemide (Furosemide 20 Mg/2 Ml Vial) 20 mg IV BIDD [facility] Last Admin: 05/17/21 07:51 Dose: 20 mg Documented by: Guaifenesin (Guaifenesin/Dextromethorphan Oral [place]) 10 ml PO Q4HP PRN PRN Reason: Cough Levalbuterol HCl (Levalbuterol 1.25 Mg/3 Ml Ampul.Neb) 1.25 mg NEB Q6H [facility] Last Admin: 05/17/21 07:38 Dose: 1.25 mg Documented by: Levalbuterol HCl (Levalbuterol 1.25 Mg/3 Ml Ampul.Neb) 1.25 mg NEB Q4HRT PRN PRN Reason: Wheezing Lisinopril (Lisinopril 2.5 Mg Tablet) 2.5 mg PO DAILY [facility] Last Admin: 05/17/21 08:24 Dose: 2.5 mg Documented by: Omeprazole (Omeprazole 20 Mg Capsule) 20 mg PO ACB [facility] Last Admin: 05/17/21 07:52 Dose: 20 mg Documented by: Ondansetron HCl (Ondansetron 4 Mg/2 Ml Vial) 4 mg IV Q6HP PRN PRN Reason: Nausea And Vomiting Phenol (Phenol/Sodium Phenolate 5 [place] Bottle 180ml) 5 spray SSP Q2HP PRN PRN Reason: Sore Throat Potassium Chloride (Potassium Chloride 10 Meq Tablet) 10 meq PO QAMCC [facility] Last Admin: 05/17/21 07:52 Dose: 10 meq Documented by: Senna (Sennosides 1 Tablet) 2 tab PO HS [facility] Last Admin: 05/16/21 21:13 Dose: Not Given Documented by: Sodium Chloride (0.9 % Sodium Chloride 10 Ml Syringe) 10 ml IV Q8 [facility] Last Admin: 05/17/21 07:52 Dose: 10 ml Documented by: Warfarin Sodium (Warfarin Per Pharmacy) 1 order PO UD [facility] Warfarin Sodium (Warfarin 5 Mg Tablet) 5 mg PO ONCE@1400 ONE Stop: 05/17/21 14:01 Zolpidem Tartrate (Zolpidem 5 Mg Tablet) 5 mg PO HSP PRN PRN Reason: Insomnia A/P Assessment and plan (1) Acute exacerbation of CHF (congestive heart failure): Status: Acute (2) Acute on chronic respiratory failure with hypoxia: Status: Acute (3) BEATA treated with BiPAP: Status: Acute (4) Asthma with COPD: Status: Chronic (5) Atrial fibrillation with rapid ventricular response: Status: Acute (6) GERD (gastroesophageal reflux disease): Status: Chronic Qualifiers: Esophagitis presence: esophagitis presence not specified Qualified Code(s): K21.9 - Gastro-esophageal reflux disease without esophagitis (7) Benign hypertension with CKD (chronic kidney disease) stage III: Status: Chronic (8) Anemia, normocytic normochromic: Status: Acute (9) Elevated troponin: Status: Acute Narrative A/P Narrative: Assessment and Plans: 1. Community acquired pneumonia: Stays in inpatient med surg telemetry Lactic acid 0.7 Procalcitonin 0.20 Blood culture, no growth to date Sputum culture, no growth to date cbc w/ auto diff in the morning to trend WBC level Supplemental oxygen therapy titrate to achieve spo2>=88% given COPD-er, currently on 2L/min oxygen Rocephin Zithromax Tylenol PRN fever Robitussin DM PRN cough DuoNEB NEB PRN wheezing Chloraseptic spray PRN sore throat 2.CHF exacerbation: Strict intake and output Daily weigh 2L/day fluid restriction No beta valentina during exacerbation phase Lasix 20mg IV BID Lisinopril 2.5mg PO daily 2D echocardiogram, results pending Supplemental oxygen therapy titrate to achieve spo2>=88% given COPD-er, currently on 3L/min oxygen 3. COPD with asthma, stable: Continue home regimen of bronchodilators Xopenex NEB q4hr PRN wheezing 4. Atrial fibrillation on Coumadin: Diltiazem for rate control Coumadin with daily INR for pharmacy assisted dosing 5. Anemia, normocytic normochromic: Daily cbc w/ auto diff to trend H/H; transfuse pRBC if Hemoglobin<7.0, active bleeding, or symptomatic Need outpatient endoscopy 5. Essential HTN with CKD stage 3: Baseline serum Cr level 1.9, currently 1.8, either DALIA on CKD, or progression of CKD Currently normotensives Avoid nephrotoxic agents Saline lock, fluid restriction, and Lasix Continue Diltiazem, add Lisinopril for renal protection Daily CMP to trend kidney functions 6. BEATA on BiPAP at night: Continue CPAP at night while sleeping 7. GERD: Continue oral PPI from home regimen 8. Elevated serum troponin level: Serial troponin level, down-trending GI ppx: Continue oral PPI from home regimen DVT ppx: Coumadin Code status: DNI DNR Prognosis: guarded Disposition: inpatient med surg telemetry Time Spent With Patient Time: Total time spent is greater than 50% in coordination of care (as documented) at patient's floor/unit and/or counseling patient: Total time spent with greater than 50% in coordination of care (as documented) at patient's floor/unit and/or counseling patient:: Greater than 35 minutes QUALITY VTE Deep Vein Thrombosis/Pulmonary Embolism Present on Admission: No
[2021-05-17] MEDS ORDERED: WARFARIN 5 MG TABLET PO ONE (14:00)
[2021-05-17] MEDS: ALLOPURINOL 100 MG TABLET PO SCH (20:30)
[2021-05-17] MEDS: SENNOSIDES 1 TABLET PO SCH (20:30)
[2021-05-17] MEDS: ATORVASTATIN 40 MG TABLET PO SCH (20:30)
[2021-05-18] MEDS: LEVALBUTEROL 1.25 MG/3 ML AMPUL.NEB NEB SCH ×2 (00:45→08:00)
[2021-05-18] MEDS: 0.9 % SODIUM CHLORIDE 10 ML SYRINGE IV SCH (04:57)
[2021-05-18] MEDS: OMEPRAZOLE 20 MG CAPSULE PO SCH (06:45)
[2021-05-18] MEDS: BUDESONIDE 0.5 MG/2 ML AMPUL.NEB NEB SCH (08:00)
[2021-05-18 08:25] LABS: Basophils # (Auto) 0.03 K/mcL (0.00-0.30); Basophils % (Auto) 0.4 % (0.0-2.0); Eosinophils # (Auto) 0.15 K/mcL (0.00-0.70); Hemoglobin 9.7 g/dL (13.7-17.5); Lymphocytes # (Auto) 0.86 K/mcL (1.50-4.80); Lymphocytes % (Auto) 11.2 % (15.5-49.0); Mean Cell Volume 95.5 fL (80.0-100.0); Mean Corpuscular HGB Conc 32.3 g/dL (31.0-36.0); Mean Platelet Volume 9.6 fL (7.4-10.4); Monocytes # (Auto) 0.77 K/mcL (0.10-0.90); Monocytes % (Auto) 10.1 % (1.0-12.0); Neutrophils % (Auto) 76.3 % (38.0-78.0); Platelet Count 421 K/mcL (140-440); RBC 3.14 M/mcL (4.63-6.08); Red Cell Distribution Width 16.1 % (11.5-14.5); WBC 7.7 K/mcL (4.5-11.0)
[2021-05-18 08:37] LABS: INR 1.9 (0.9-1.1); Prothrombin Time 22.2 sec (11.9-14.5)
[2021-05-18 09:11] LABS: ALT/SGPT 13 U/L (<40); AST/SGOT 18 U/L (<40); Albumin 3.6 gm/dL (3.2-5.2); Albumin/Globulin Ratio 1.2 (1.0-2.3); Alkaline Phosphatase 130 U/L (39-117); Bilirubin,Total 0.3 mg/dL (0.1-1.0); Blood Urea Nitrogen 34 mg/dL (8-23); Calcium 10.1 mg/dL (8.6-10.4); Carbon Dioxide 30 mmol/L (22-30); Chloride 97 mmol/L (96-108); Glomerular Filtration Rate 31; Glucose 128 mg/dL (70-105); Phosphorous 4.9 mg/dL (2.5-4.5)
[2021-05-18] MEDS: FUROSEMIDE 20 MG/2 ML VIAL IV SCH (10:06)
[2021-05-18] MEDS: cefTRIAXone 1 GM VIAL IV SCH (10:06)
[2021-05-18] MEDS: CETIRIZINE 10 MG TABLET PO SCH (10:14)
[2021-05-18] MEDS: DILTIAZEM 180 MG CAP.XL.24H PO SCH (10:14)
[2021-05-18] MEDS: POTASSIUM CHLORIDE 10 MEQ TABLET PO SCH (10:15)
[2021-05-18] MEDS: DOCUSATE SODIUM 100 MG CAPSULE PO SCH (10:15)
[2021-05-18] MEDS: FLUTICASONE PROPIONATE SPRAY.NAS NS SCH (10:16)
[2021-05-18] MEDS: LISINOPRIL 2.5 MG TABLET PO SCH (10:17)
--- NOTE | 2021-05-18 10:53 | Discharge Summary ---
Discharge Provider Provider Patient information: Note initiated : 05/18/21 at 10:49 am Service Date, if different from initiated Date: [] Patient: Yoav Álvarez 89 y/o M admitted on 05/15/21 for SHORTNESS OF BREATH. Chief Complaint: [] Date of admission: 05/15/21 14:10 Discharge date: 05/18/21 Primary care physician: Carine Washington Attending physician on admission: Ishan Smith Consults: 05/15/21 Consult to Physician [CONS] Stat Comment: Consulting Provider: Ishan Smith Reason For Exam: Physician to Consult Attending physician on discharge: Ishan Smith Discharge Meds Discharge Medications Home Medications valacyclovir 500 mg tablet 500 mg PO BIDP PRN 09/20/16 [History Confirmed 05/15/21 Last Taken 07/21/18] potassium chloride 10 mEq tablet,extended release 10 meq PO QDAY tab 10/17/16 [History Confirmed 05/15/21 Last Taken 05/14/21 08:00 10 MEQ] warfarin 5 mg tablet See Rx Instructions .ROUTE .COMPLEX 10/17/16 [History Confirmed 05/15/21 Last Taken 12/12/17] budesonide 0.5 mg/2 mL suspension for nebulization 0.5 mg INHALATION BID ml 11/20/16 [History Confirmed 05/15/21 Last Taken 05/14/21 17:30 0.5 MG.] fluticasone propionate 50 mcg/actuation nasal spray,suspension 50 mcg INTRANASAL DAILY 12/17/16 [History Confirmed 05/15/21 Last Taken 07/21/18] atorvastatin 40 mg tablet 40 mg PO HS 06/13/17 [History Confirmed 05/15/21 Last Taken 05/14/21 21:00 40 MG.] cetirizine 10 mg capsule 10 mg PO DAILY cap 03/04/18 [History Confirmed 05/15/21 Last Taken 05/14/21 09:00 10 MG.] ipratropium 0.5 mg-albuterol 3 mg (2.5 mg base)/3 mL nebulization soln 3 ml INHALATION Q6H ml 03/04/18 [History Confirmed 05/15/21 Last Taken 05/14/21 18:00 3 ML.] warfarin 2.5 mg tablet 2.5 mg PO SUTUWETHFRSA@2100 02/13/19 [History Confirmed 05/15/21 Last Taken 05/13/21 14:00 2.5 MG.] CPAP #1 ea 10/12/19 [History Confirmed 04/19/21 Last Taken Unknown] albuterol sulfate 90 mcg/actuation aerosol inhaler (ProAir HFA) 2 puff INHALATION QIDP PRN #18 g 10/12/19 [Rx Confirmed 05/15/21 Last Taken 05/14/21 17:30 90 MCG] hydrocortisone 1 % topical cream (Anti-Itch (hydrocortisone)) 1 applic TOPICAL BID PRN 12/21/19 [History Confirmed 05/15/21 Last Taken Unknown] metolazone 2.5 mg tablet 2.5 mg PO PRN PRN 12/21/19 [History Confirmed 05/15/21 Last Taken Unknown] allopurinol 300 mg tablet 150 mg PO HS #45 tab 08/28/20 [Rx Confirmed 05/15/21 Last Taken 05/14/21 21:00 300 MG.] diltiazem HCl 180 mg capsule,extended release 24 hr 180 mg PO QDAY #30 cap 12/19/20 [History Confirmed 05/15/21 Last Taken 05/14/21 09:00 180 MG.] furosemide 20 mg tablet 40 mg PO BID tab 12/19/20 [History Confirmed 05/15/21 Last Taken 05/14/21 18:00 20 MG.] omeprazole 20 mg capsule,delayed release 20 mg PO QDAY 05/15/21 [History Confirmed 05/15/21 Last Taken 05/14/21 07:30 20 MG.] Lisinopril [Zestril] 2.5 mg PO DAILY 30 Days 05/18/21 [Rx Last Taken Unknown] levofloxacin 750 mg tablet 750 mg PO Q24H 6 Days #6 tab 05/18/21 [Rx Last Taken Unknown] COURSE Hospital Course Hospital course: Mr. 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 Last prior similar episode was 4 years a go. He is vaccinated against Covid pneumonia. 2 days ago he started to experience gradual onset, gradually worsening general body weakness together with shortness of breath. He is also complaining of productive cough as well as respiratory wheezings. He is committing of chest tightness whenever he coughs. He denies any fever, chills, or diaphoresis. Positive for orthopnea and he sleeps on recliner or specialty chairs. Denies any leg swelling. He is also complaining of decreasing appetite. He lost 40 pounds over the past 8 months. This morning when he woke up he felt increasingly short of breath so he called EMS and his oxygen saturations was found to be 82% on room air. Vital signs otherwise significant for elevated rate of breathing up to 30s breaths per minutes. Afebrile. Labs significant for leukocytosis with WBC 13.2. Serum creatinine level 2.1 with baseline 1.9. Serum troponin level 0.06x2. Serum BNP 3176. Chest x-ray showing moderate patchy right basilar infiltrate with probable superimposed mild CHF. 05/16: Afebrile overnight. [facility] negative. Blood and sputum cultures no growth to date. On 3L/min overnight and currently. Improving SOB. c/o productive cough with yellow sputum. Denies wheezing or chest pain. c/o chills, denies any fever or sweating. 05/17: Afebrile overnight. Currently on 2L/min oxygen. c/o SOB. c/o wheezing. c/o sore throat. Denies cough. Denies chest pain. Denies fever chills or sweating. 05/18: Reached clinical stability, discharged home with home oxygen, oral antibiotics and diuretics,and 1 week PCP follow up appointment. All questions were answered prior to patient being physically discharged. Discharge diagnosis: congestive heart failure exacerbation, pneumonia Time Spent with Patient Time attestation: Total time spent providing and/or coordinating discharge services: Time spent: Less than 30 minutes EXAM Constitutional Vitals: Temp Pulse Resp BP Pulse Ox 37.3 C H 74 22 132/67 94 05/18/21 06:45 05/18/21 08:02 05/18/21 08:02 05/18/21 06:45 05/18/21 08:02 General appearance: cooperative and no acute distress Head Head exam: Present atraumatic and normocephalic Eye Eye exam: Present EOMI and PERRL ENT ENT exam: Present mucous membranes moist, normal exam and normal external ear exam Additional comments: Oxygen mask in place Neck Neck exam: Present normal inspection; Absent lymphadenopathy, tenderness or thyromegaly Respiratory Respiratory exam: Present rhonchi; Absent accessory muscle use, respiratory distress or wheezes Cardiovascular Cardiovascular exam: Present irregular rhythm; Absent JVD GI/Abdominal GI/Abdominal exam: Present normal bowel sounds and soft; Absent organomegaly or tenderness Rectal Rectal exam: Present deferred Extremities Exam Extremities exam: Present full ROM, normal capillary refill, normal inspection and pedal edema; Absent tenderness Neurological Exam Neurological exam: Present alert, CN II-XII intact and oriented X3; Absent motor sensory deficit Psychiatric Psychiatric exam: Present normal affect and normal mood; Absent anxious or depressed Skin Skin exam: Present dry and intact Discharge Data Data Completed and Pending Labs on day of discharge: Labs from last 24 hours 05/18/21 05/18/21 05/18/21 07:12 07:12 07:12 WBC 7.7 RBC 3.14 L Hgb 9.7 L Hct 30.0 L MCV 95.5 MCH 30.9 MCHC 32.3 RDW 16.1 H Plt Count 421 MPV 9.6 Neut % (Auto) 76.3 Lymph % (Auto) 11.2 L [place] % (Auto) 10.1 Eos % (Auto) 2.0 Baso % (Auto) 0.4 Lymph # (Auto) 0.86 L [place] # (Auto) 0.77 Eos # (Auto) 0.15 Baso # (Auto) 0.03 Absolute Neutrophils 5.85 PT 22.2 H INR 1.9 H Sodium 139 Potassium 3.6 Chloride 97 Carbon Dioxide 30 Anion Gap 12.0 BUN 34 H Creatinine 1.9 H GFR Calculation 31 Glucose 128 H Calcium 10.1 Phosphorus 4.9 H Magnesium 2.3 Total Bilirubin 0.3 AST 18 ALT 13 Alkaline Phosphatase 130 H Total Protein 6.6 Albumin 3.6 Globulin 3.0 Albumin/Globulin Ratio 1.2 Preliminary micro results at discharge 05/15/21 04:50 Blood Culture - Preliminary Blood 05/15/21 04:45 Blood Culture - Preliminary Blood Discharge Plan Patient/Caregiver Discharge Instructions Activity: increase activity as tolerated Diet: Regular Diet Prescriptions: New Lisinopril [Zestril] 2.5 mg PO DAILY 30 Days 0RF levofloxacin 750 mg tablet 750 mg PO Q24H 6 Days Qty: 6 0RF Continued allopurinol 300 mg tablet 150 mg PO HS Qty: 45 1RF budesonide 0.5 mg/2 mL suspension for nebulization 0.5 mg INHALATION BID 0RF ipratropium-albuterol 0.5 mg-3 mg(2.5 mg base)/3 mL solution for nebulization 3 ml INHALATION Q6H 0RF potassium chloride 10 mEq tablet extended release 10 meq PO QDAY 0RF furosemide 20 mg tablet 40 mg PO BID 0RF diltiazem HCl 180 mg capsule,extended release 24hr 180 mg PO QDAY Qty: 30 0RF hydrocortisone [Anti-Itch (HC)] 1 % cream 1 applic TOPICAL BID PRN (Reason: Itching) 0RF fluticasone propionate 50 mcg/actuation spray,suspension 50 mcg INTRANASAL DAILY 0RF cetirizine 10 mg capsule 10 mg PO DAILY 0RF (DME) CPAP Qty: 1 0RF Rx Instructions: As directed albuterol sulfate [ProAir HFA] 90 mcg/actuation HFA aerosol inhaler 2 puff INHALATION QIDP PRN (Reason: Shortness Of Breath) Qty: 18 3RF valacyclovir 500 MG tablet 500 mg PO BIDP PRN (Reason: SHINGLES) 0RF warfarin 5 MG tablet See Rx Instructions .ROUTE .COMPLEX 0RF Label Comments: LAST DOSE PRIOR TO SURGERY: 07/17. WILL HOLD UNTIL AFTER SURGERY BEGINNING ON 07/18. Rx Instructions: 5 mg orally one time daily except on friday take 1/2 tab. warfarin 2.5 MG tablet 2.5 mg PO SUTUWETHFRSA@2100 0RF metolazone 2.5 mg tablet 2.5 mg PO PRN PRN (Reason: lung congestion, fluid retenti) 0RF Label Comments: PT HAS NEVER TAKEN. omeprazole 20 mg Capsule,Delayed Release(Dr/Ec) 20 mg PO QDAY 0RF atorvastatin 40 mg tablet 40 mg PO HS 0RF Follow Up Plan Follow up with: Carine Washington MD [Primary Care Provider] - Patient Disposition: Home, Self-Care Prognosis: Serious Rehab Potential: Good I certify that the patient requires SNF services: No Overall status at discharge: patient is progressing back to baseline Discharge Orders: Discharge Order (Routine); Ordered 05/18/21 Ordered By: Ishan BELL VTE Deep Vein Thrombosis/Pulmonary Embolism Present on Admission: No
[2021-05-18] MEDS ORDERED: WARFARIN 5 MG TABLET PO ONE (14:00)
== END 2021-05-18 12:35 | disposition home or self-care (01) | DRG 291 ==
LOC: ED 03:46 → MEDSUR 14:10
PROVIDERS: ADMIT Internal Medicine; ATTEND Internal Medicine